=== PATIENT | female | born 2000 | race Caucasian/White ===

== ENCOUNTER 2024-07-23 12:51 | Emergency (ER) | payer OTHER, SELFPAY ==
[2024-07-23 12:56] VITALS: BP 104/72; PULSE 108; RESP 20; O2SAT 99; BMI 18.9
[2024-07-23] MEDS: ONDANSETRON 2 MG/ML inj 4 MG IVP (13:35)
[2024-07-23] MEDS: LACTATED RINGERS 1000 ML 1,000 ML IV ×2 (13:45→14:30)
[2024-07-23 13:50] LABS: Basophils Percent Auto 0.1 % (0.0-3.0); Hematocrit 36.8 % (33.0-51.0); Hemoglobin* 12.6 gm/dL (12.0-16.0); Immature Granulocytes Pct Auto 0.3 %; Lymphocytes Percent Auto 3.7 % (20-44); Mean Corpuscular HGB Conc 34 gm/dL (32-36); Mean Corpuscular Hemoglobin 30 pg (26-34); Mean Corpuscular Volume 88 fL (80-100); Monocytes Percent Auto 2.6 % (0.0-11.0); Neutrophils Percent Auto 93.3 % (42.0-72.0); Platelet Count* 268 K/uL (140-440); Red Blood Count 4.17 m/uL (4.00-5.20); White Blood Count* 17.16 K/uL (4.50-11.00)
[2024-07-23 13:57] LABS: Slide Review Reflex No
--- NOTE | 2024-07-23 13:58 | ED_ITS ---
HPI - Nausea/Vomiting/Diarrhea General Date Seen: 07/23/24 Chief complaint: Nausea/Vomiting Stated complaint: dehydrated, vomiting Time Seen by Provider: 07/23/24 13:01 Source: patient Mode of arrival: ambulatory Limitations: no limitations History of Present Illness HPI Narrative: Patient is a 24-year-old female presenting to emergency department for nausea, vomiting, diarrhea. She states symptoms started 05:30 this morning. She [place]. Is not states she got intoxicated but did have a good to buzz going. States the symptoms happened whenever she drinks too much alcohol. Has tried Zofran and Phenergan at home but was unable to keep the medication down and quickly vomited back up. Has not been able to keep anything down this morning. States she has lost track of only time she has vomited and has had diarrhea all morning. Is still very nauseated at this time. States he feels lightheaded. Denies abdominal pain, chest pain, shortness of breath, fevers, chills, weakness, numbness. Is feeling fatigued. No other concerns noted at this time. Related Data Previous Rx's ?Medication ?Instructions ?Recorded ondansetron 4 mg disintegrating 4 mg PO Q6H #20 tabs 07/23/24 tablet Allergies Allergy/AdvReac Type Severity Reaction Status Date / Time No Known Drug Allergies Allergy Verified 07/23/24 13:00 Review of Systems Status of ROS: Reports: 10 or more systems reviewed and unremarkable except as noted in History and below Exam Narrative: Exam Narrative: Const: Well-nourished, Well-developed, in mild distress Eyes: PERRL, no conjunctival injection, and symmetrical lids HENT: Atraumatic external nose and ears. Moist mucous membranes. Neck: Symmetric, trachea midline, No thyromegaly. CVS: RRR, No murmurs or gallops. Peripheral pulses 2+ and equal in all extremities RESP: Unlabored respiratory effort. Clear to auscultation bilaterally. GI: Nontender/Nondistended, No rebound or guarding. MSK:Extremities w/o deformity, Normal Active ROM Skin: Warm, Dry. No rashes or lesions. Neuro: Normal Muscle tone, No focal neurological deficits. Psych: Awake, Alert, & Oriented x3. Appropriate mood and affect. Const: Vital Signs, click to edit/add: Vital Signs - 24 hr 07/23/24 12:56 07/23/24 14:07 07/23/24 14:54 Temperature 97.8 F Pulse Rate [Pulse Oximeter] 108 H 69 Respiratory Rate 20 Blood Pressure [Ri ght Upper Arm] 104/72 Pulse Oximetry 99 99 Oxygen Delivery Me thod Room Air Room Air 07/23/24 15:30 07/23/24 15:30 Temperature Pulse Rate [Pulse Oximeter] Respiratory Rate 22 Blood Pressure [Ri ght Upper Arm] 102/68 Pulse Oximetry Oxygen Delivery Me thod Course Vital Signs Vital signs: Initial Vital Signs Pulse Rate 108 H 07/23/24 12:56 Respiratory Rate 20 07/23/24 12:56 Blood Pressure 104/72 07/23/24 12:56 Blood Pressure Mean 82 07/23/24 12:56 Pulse Oximetry 99 07/23/24 12:56 Oxygen Delivery Method Room Air 07/23/24 12:56 Vital Signs Pulse Rate 108 H 07/23/24 12:56 Respiratory Rate 20 07/23/24 12:56 Blood Pressure 104/72 07/23/24 12:56 Pulse Oximetry 99 07/23/24 12:56 Oxygen Delivery Method Room Air 07/23/24 12:56 Temperature 97.8 F 07/23/24 14:07 Pulse Rate 69 07/23/24 14:54 Respiratory Rate 22 07/23/24 15:30 Blood Pressure 102/68 07/23/24 15:30 Pulse Oximetry 99 07/23/24 14:54 Oxygen Delivery Method Room Air 07/23/24 14:54 Medications Administered Medications: Discontinued Medications Generic Name Dose Route Start Last Admin Trade Name Freq PRN Reason Stop Dose Admin Diphenhydramine HCl 25 mg 07/23/24 14:12 07/23/24 14:14 Diphenhydramine 50 Mg/Ml Inj IVP 07/23/24 14:13 25 mg ONCE ONE Administration Droperidol 2.5 mg 07/23/24 15:16 07/23/24 15:28 Droperidol 2.5 Mg/Ml Inj IV 07/23/24 15:17 2.5 mg ONCE ONE Administration Lactated Ringer's 1,000 mls @ 1,000 mls/hr 07/23/24 13:24 07/23/24 14:39 Lactated Ringers 1000 Ml IV 07/23/24 14:23 Infused .Q1H ONE Infusion Lactated Ringer's 1,000 mls @ 1,000 mls/hr 07/23/24 14:24 07/23/24 15:30 Lactated Ringers 1000 Ml IV 07/23/24 15:23 Infused .Q1H ONE Infusion Metoclopramide HCl 10 mg 07/23/24 14:12 07/23/24 14:15 Metoclopramide Hcl 5 Mg/Ml Inj IVP 07/23/24 14:13 10 mg ONCE ONE Administration Ondansetron HCl 4 mg 07/23/24 13:24 07/23/24 13:35 Ondansetron 2 Mg/Ml Inj IVP 07/23/24 13:25 4 mg ONCE ONE Administration MDM - Nausea/Vomiting/Diarrhea MDM Narrative Medical decision making narrative: Patient is 24-year-old female presenting for nausea, vomiting, diarrhea. Differential includes at this time is a gastritis, pancreatitis pancreatitis, viral infection. Seems unlikely to be related to gallbladder disease we will do LFTs to look for abnormalities. Also seems unlikely to be appendicitis considering she is having no abdominal pain. SBO seems unlikely with no previous abdominal surgeries. At this time and not believe abdominal imaging is necessary but will order CBC, lipase, magnesium, urinalysis, CMP, urine test. She declined the COVID swab. Give her 1 L of lactated Ringer's and Zofran for nausea. Lab work returned with a white count of 17.16. No clear signs of infection of this times likely be stress reaction from a for vomiting. CMP shows no concerning abnormalities. Lipase within normal limits. Urinalysis shows no clear signs of UTI. She is still nauseated after the Zofran and Reglan was tried. Also gave her a 2 L of fluids. Her heart rate has improved significantly and she is not actively driving anymore but is still feeling nauseated. And will try droperidol and do an EKG prior. EKG was done showing no signs have Q T prolongation. Droperidol was given with some improvement in her symptoms. At this point there is not much further we can do for her nausea. Her vitals otherwise look well and do not believe imaging will be beneficial. She does feel like she can be discharged I will prescribe her some orally disintegrating Zofran. She is agreeable to this plan. Lab Data Labs: Lab Results 07/23/24 07/23/24 Range/Units 13:40 14:30 WBC 17.16 H (4.50-11.00) K/uL RBC 4.17 (4.00-5.20) m/uL Hgb 12.6 (12.0-16.0) gm/dL Hct 36.8 (33.0-51.0) % MCV 88 (80-100) fL MCH 30 (26-34) pg MCHC 34 (32-36) gm/dL RDW Coeff of Leonie 12.0 (11.5-15.5) % Plt Count 268 (140-440) K/uL Neut % (Auto) 93.3 H (42.0-72.0) % Lymph % (Auto) 3.7 L (20-44) % Bradford % (Auto) 2.6 (0.0-11.0) % Eos % (Auto) 0.0 (0.0-7.0) % Baso % (Auto) 0.1 (0.0-3.0) % Neut # (Auto) 16.00 H (1.7-7.0) K/uL Lymph # (Auto) 0.60 L (0.90-2.90) K/uL Bradford # (Auto) 0.40 (0.00-0.90) K/UL Eos # (Auto) 0.00 (0.00-0.50) K/uL Baso # (Auto) 0.00 (0.00-0.30) K/uL Abs Immat Gran (auto) 0.10 (0.00-0.30) K/uL Imm/Tot Granulo (auto) 0.3 % Sodium 135 (135-149) mmol/L Potassium 3.5 L (3.6-5.1) mmol/L Chloride 106 (96-114) mmol/L Carbon Dioxide 17 L (20-32) mmol/L Anion Gap 12 (7-15) mEq/L BUN 13 (5-24) mg/dL Creatinine 0.5 (0.5-1.5) mg/dL Estimated Creat Clear 134.30 Estimated GFR 133 ml/min Glucose 142 H (60-115) mg/dL Calcium 9.6 (8.4-10.6) mg/dL Magnesium 1.6 (1.5-2.6) mg/dL Total Bilirubin 0.7 (0.1-1.5) mg/dL AST 25 (12-35) U/L ALT 18 (4-35) U/L Alkaline Phosphatase 61 (40-150) U/L Total Protein 7.7 (6.0-8.3) g/dL Albumin 4.9 (3.3-5.0) g/dL Lipase 48 (23-300) U/L Urine Color Yellow (Yellow) Urine Appearance Clear (Clear) Urine pH 7.5 (5.0-8.5) Ur Specific [place] 1.020 (1.000-1.030) Urine Protein 1+ A (Negative) Urine Glucose (UA) Negative (Negative) Urine Ketones 4+ A (Negative) Urine Blood Trace-intact A (Negative) Urine Nitrite Negative (Negative) Urine Bilirubin Negative (Negative) Urine Urobilinogen 0.2 (0.2-1.0) Ur Leukocyte Esterase Negative (Negative) Urine RBC 2-5 A (0-2) Urine WBC 0-2 (0-5) Ur Squamous Epith Cells Few (None-Few) Urine Bacteria Few A (None) Urine HCG, Qual Negative (Negative) ECG Data Attestation: I personally reviewed and interpreted this ECG as follows: Prior ECG tracings: not available for review Interpretation: Normal sinus rhythm rate of 68 beats per minute, short NE interval, normal axis, no ST T-wave abnormalities. Discharge Plan Discharge Clinical Impression: Nausea & vomiting Qualifiers: Vomiting type: unspecified Qualified Code(s): R11.2 - Nausea with vomiting, unspecified Patient Disposition: Home, Self-Care Condition: Improved Instructions: Acute Nausea and Vomiting (DC) Additional Instructions: Try using the oral disintegrating tablets of the Zofran. Return to emergency department for new or worsening symptoms. Prescriptions: New ondansetron 4 mg tablet,disintegrating 4 mg PO Q6H Qty: 20 0RF Follow Up/Referrals: Gunner Cox MBBS [Primary Care Provider] - Stand Alone Forms: [employer] Info Instructions
[2024-07-23 14:07] VITALS: TEMP 36.6
[2024-07-23 14:08] LABS: Albumin* 4.9 g/dL (3.3-5.0)
[2024-07-23 14:09] LABS: Chloride* 106 mmol/L (96-114); Potassium* 3.5 mmol/L (3.6-5.1); Sodium* 135 mmol/L (135-149)
[2024-07-23 14:11] LABS: Anion Gap 12 mEq/L (7-15); Aspartate Amino Transferase* 25 U/L (12-35); Bilirubin Total* 0.7 mg/dL (0.1-1.5); Carbon Dioxide* 17 mmol/L (20-32); Creatinine* 0.5 mg/dL (0.5-1.5); Estimated Glomerular Filt Rate 133 ml/min; Total Protein* 7.7 g/dL (6.0-8.3)
[2024-07-23 14:12] LABS: Alanine Aminotransferase* 18 U/L (4-35); Alkaline Phosphatase* 61 U/L (40-150); Blood Urea Nitrogen* 13 mg/dL (5-24); Calcium* 9.6 mg/dL (8.4-10.6); Glucose* 142 mg/dL (60-115); Lipase* 48 U/L (23-300)
[2024-07-23 14:13] LABS: Magnesium* 1.6 mg/dL (1.5-2.6)
[2024-07-23] MEDS: diphenhydrAMINE 50 MG/ML inj 25 MG IVP (14:14)
[2024-07-23] MEDS: METOCLOPRAMIDE HCL 5 MG/ML INJ 10 MG IVP (14:15)
[2024-07-23 14:54] VITALS: PULSE 69; O2SAT 99
[2024-07-23 15:02] LABS: Appearance Urine Clear (Clear); Bilirubin Urine Negative (Negative); Blood Urine Trace-intact (Negative); Color Urine Yellow (Yellow); Glucose Urine Negative (Negative); Ketones Urine 4+ (Negative); Leukocyte Esterase Urine Negative (Negative); Nitrite Urine Negative (Negative); Protein Urine 1+ (Negative); Urobilinogen Urine 0.2 (0.2-1.0); pH Urine 7.5 (5.0-8.5)
[2024-07-23 15:03] LABS: Ur HCG Qualitative* Negative (Negative)
[2024-07-23] MEDS: droperidoL 2.5 MG/ML inj IV (15:28)
[2024-07-23 15:30] VITALS: BP 102/68; RESP 22
[2024-07-23 15:32] LABS: Bacteria Urine Few; Squamous Epithelial Cell Urine Few (None-Few); WBC Urine 0-2 (0-5)
== END 2024-07-23 15:55 | disposition home or self-care (01) ==
PROVIDERS: Emergency Provider Student in an Organized Health Care Education/Training Program; PCP Internal Medicine
DX: R11.2 Nausea with vomiting, unspecified (principal)
CPT/HCPCS: 36415; 80053; 81001; 81025; 83690; 83735; 85025; 87086; 87631; 93005; 96374; 96375; 99283; 99284; J1200; J1790; J2405; J2765; J7120

== ENCOUNTER 2025-05-25 06:19 | Emergency (ER) | payer OTHER, SELFPAY ==
--- OUTSIDE RECORDS SUMMARY | 2025-05-25 06:21 | XMS_ITS | Encounter Summary ---
Author Organization [facility] Address [address], [place] [address] Care Team Providers Care Manager Market Name Role Phone Unavailable Primary Care Provider Unavailabl e Encounter Details Date Type Department Care Team (Late st Contact Info) Description 06/04/2019 Correspondence None No Primary/Referring, Phy REFERRAL AND AUTHORIZATION Social History Tobacco Use Types Packs/Day Years Used Date Smoking Tobacco: Never Smokeless Tobacco: Never Alcohol Use Standard Drinks/Week Comments Yes 0 (1 standard drink = 0.6 oz pur e alcohol) social Comments No Sex and Gender Information Value Date Recorded Sex Assigned at Not on file Legal Sex Female 4:04 PM CDT Gender Identity Not on file Sexual Orientation Not on file documented as of this encounter Plan of Treatment Not on file documented as of this encounter Visit Diagnoses Not on filedocumented in this encounter
--- OUTSIDE RECORDS SUMMARY | 2025-05-25 06:21 | XMS_ITS | Encounter Summary ---
Author Organization [facility] Address [address] [place] [address] Care Team Providers Care Licensed Dispensing Optician Name Role Phone Clinic - [facility] Primary Care P juani Jessica Maier CNM Unavailable [phone] No Ref-Primary, Physician Primary Care Provider Luci Sanches [facility] Unavailable [phone] Joana Roland RN Unavailable Unavailable Jessica Ferrara MD Primary Care Provider Jessica Ferrara MD Unavailable [phone] Chaparro Vargas MD Unavailable Chaparro Vargas MD Unavailable Alissa Payan [facility] Primary Care Provid er Unavailable Isha Cox MD Primary Care Provider Robbie Shrestha Unavailable Unavailable Isha Cox MD Unavailable Genaro Jimenez Unavailable Unavailable Shahnaz Barber Unavailable Unavailable Encounter Details Date Type Department Care Team (Late st Contact Info) Description 10/08/2020 [place] [facility] Mental Health & Addiction [facility] [address] [place] [id number] Luci Sanches, [address] [place] [address] Social History Tobacco Use Types Packs/Day Years Used Date Smoking Tobacco: Never Smokeless Tobacco: Never Alcohol Use Standard Drinks/Week Comments No 0 (1 standard drink = 0.6 oz pur e alcohol) Social Connection and Isolat ion Panel [NHANES] Answer Date Recorded In a typical week, how many times do you talk on the phone with family, friends, or neighbors? More than three times a week 07/23/2020 Frequency of Social Gatherin gs with Friends and Family Not on file 07/23/2020 Attends Nondenominational Services Not on file 07/23 Active Member of Clubs or Organizations Not on f ile 07/23/2020 Attends Club or Organization Meetings Not on riley e 07/23/2020 Marital Status Not on file 07/23/2020 Overall Financial Resource Strain (CARDIA) Answe r Date Recorded How hard is it for you to pa y for the very basics like food, housing, medical care, and heating? Not hard at all 07/23/2020 PHQ-2 Answer Date Recorded PHQ-2 Score 2 09/14/2020 [facility] - Occupational Stress Questionnaire Answer Date Recorded Do you feel stress - tense, restless, nervous, or anxious, or unable to sleep at night because your mind is troubled all the time - these days? Not at all 07/23/2020 Hunger Vital Sign Answer Date Recorded Within the past 12 months, y ou worried that your food would run out before you got the money to buy more. Never true 07/23/20 20 Within the past 12 months, t he food you bought just didn't last and you didn't have money to get more. Never true 07/23/2020 PRAPARE - Transportation Answer Date Re corded In the past 12 months, has l ack of transportation kept you from medical appointments or from getting medications? No 01/2020 In the past 12 months, has l ack of transportation kept you from meetings, work, or from getting things needed for daily living? No 07/23/2020 Comments No Sex and Gender Information Value Date Recorded Sex Assigned at Not on file Legal Sex Female 3:35 AM HOME HEALTH CARE PROVIDER Gender Identity Not on file Sexual Orientation Not on file documented as of this encounter Plan of Treatment Not on file documented as of this encounter Visit Diagnoses Not on filedocumented in this encounter Additional Health Concerns Assessment Noted Time PHQ-9 Depression Total Score: 5 09/28/20 20 12:09 PM HOME HEALTH CARE PROVIDER documented as of this encounter Care Teams Licensed Dispensing Optician Relationship Specialty Start Date End Date Clinic - [place] [place] [address] PCP - General 09/24/19 11/15/20 No Ref-Primary, Physician PCP - General 11/16/20 02/11/21 Jessica Ferrara MD PCP - General Internal Medicine 02/12/21 08/16/21 Edilberto-Alissa Garcia, COOL ROOFING INSTALLER [address] [place] [address] PCP - General Data Analysis Manager - Clinical 08/17/21 08/26/21 [place] [address] [place] [address] PCP - General Family Medicine 08/27/21 Jessica Maier CNM [address] [place] [address] [place] [address] Assigned OBGYN Provider 09/11/20 01/15/22 Luci Sanches, COOL ROOFING INSTALLER [address] [place] [address] [address] [place] [address] Data Analysis Manager Data Analysis Manager - Clinical 09/15/20 Joana Roland, PITO Other (see comments) Primary Care - CC 12/31/20 04/29/21 Jessica Ferrara MD [address] [place] [address] Assigned PCP 01/21/21 09/04/21 Chaparro Vargas MD [address] [place] [address] MD Gastroenterology 03/22/21 Chaparro Vargas MD [address] [place] [address] Assigned Gastroenterology Provider 05/16/21 11/11/22 Robbie Shrestha Personal Advocate & Liaison (PAL) 08/27/21 02/06/22 [place] [address] [place] [address] Assigned PCP 09/05/21 Genaro Jimenez Personal Advocate & Liaison (PAL) 02/07/22 01/29/23 Shahnaz Barber Personal Advocate & Liaison (PAL) Family Medicine 01/30/23 documented as of this encounter
--- OUTSIDE RECORDS SUMMARY | 2025-05-25 06:21 | XMS_ITS | Encounter Summary ---
Author Organization [facility] Address [address] [place] [address] Care Team Providers Care Carrier Operator Name Role Phone Jessica Maier CHARU Unavailable No Ref-Primary, Physician Primary Care Provider Luci Sanches [facility] Unavailable Joana Roland RN Unavailable Unavailable Jessica Ferrara MD Primary Care Provider Jessica Ferrara MD Unavailable Chaparro Vargas MD Unavailable Chaparro Vargas MD Unavailable Alissa Payan [facility] Primary Care Provid er Unavailable Isha Cox MD Primary Care Provider Robbie Shrestha Unavailable Unavailable Isha Cox MD Unavailable Genaro Jimenez Unavailable Unavailable Shahnaz Barber Unavailable Unavailable Encounter Details Date Type Department Care Team (Late st Contact Info) Description 11/17/2020 [facility] & [facility] [address] [place] [address] Luci Sanches, FLOORING MACHINE OPERATOR [address] [facility] [address] [address] [facility] [place] [place] [id number] Social History Tobacco Use Types Packs/Day Years [...] and Family Not on file 07/23/2020 Attends Hoahaoism Services Not on file 07/23 Active Member [...] Answer Date Recorded PHQ-2 Score 2 09/14/2020 [facility] Occupat ional Health - Occupational Stress Questionnaire [...] on file Legal Sex Female 3:35 AM CARGO BRACER Gender Identity Not on file Sexual Orientation Not on file COVID-19 Exposure Response Date Recorded In the last month, have you been in contact with someone who was confirmed or suspected to have Coronavirus / COVID-19? No / Unsure 11/16/2020 10:15 AM CARGO BRACER documented as of this encounter Plan of Treatment Not on file documented as of this encounter Visit Diagnoses Not on filedocumented in this encounter Additional Health Concerns Assessment Noted Time PHQ-9 Depression Total Score: 4 11/02/20 20 1:10 PM CARGO BRACER documented as of this encounter Care Teams Carrier Operator Relationship Specialty Start Date End Date No Ref-Primary, Physician PCP - General 11/16/20 02/11/21 Jessica Ferrara MD PCP - General Internal Medicine 02/12/21 08/16/21 Edilberto-Alissa Garcia, [facility] [address] [place] [address] PCP - General Parimutuel Ticket Seller - Clinical 08/17/21 08/26/21 [place] [address] [place] [address] PCP - General Family Medicine 08/27/21 Jessica Maier CNM [address] [address] Assigned OBGYN Provider 09/11/20 01/15/22 Luci Sanches, [facility] [address] [place] [address] [address] [place] [address] Parimutuel Ticket Seller Parimutuel Ticket Seller - Clinical 09/15/20 Joana Roland, PITO Other (see comments) Primary Care - CC 12/31/20 04/29/21 Jessica Ferrara MD [facility] [address] [place] [address] Assigned PCP 01/21/21 09/04/21 Chaparro Vargas MD [address] [place] [address] Gastroenterology 03/22/21 Chaparro Vargas MD [address] [place] [address] Assigned Gastroenterology Provider 05/16/21 11/11/22 Robbie Shrestha Personal Advocate & Liaison (PAL) 08/27/21 02/06/22 [place] [address] [place] [address] Assigned PCP 09/05/21 Genaro Jimenez Personal Advocate & Liaison (PAL) 02/07/22 01/29/23 Shahnaz Barber Personal Advocate & Liaison (PAL) Family Medicine 01/30/23 documented as of this encounter
--- OUTSIDE RECORDS SUMMARY | 2025-05-25 06:21 | XMS_ITS | Encounter Summary ---
Author Organization [facility] Address [address] [place] [address] Care Team Providers Care Advertising Production Manager Name Role Phone Clinic - [facility] Primary Care P juani Jessica Maier CNM Unavailable [phone] No Ref-Primary, Physician Primary Care Provider Luci Sanches [facility] Unavailable Joana Roland RN Unavailable Unavailable Jessica Ferrara MD Primary Care Provider Jessica Ferrara MD Unavailable [phone] Chaparro Vargas MD Unavailable Chaparro Vargas MD Unavailable Alissa Payan [facility] Primary Care Provid er Unavailable Isha Cox MD Primary Care Provider Robbie Shrestha Unavailable Unavailable Isha Cox MD Unavailable Genaro Jimenez Unavailable Unavailable Shahnaz Barber Unavailable Unavailable Encounter Details Date Type Department Care Team (Late st Contact Info) Description 10/30/2020 [place] [facility] Mental Health & Addiction [facility] [address] [place] [address] Luci Sanches, ENTERPRISE APPLICATION ANALYST [address] [facility] [address] [facility] [place] [address] Social History Tobacco Use Types Packs/Day Years [...] and Family Not on file 07/23/2020 Attends Congregational Services Not on file 07/23 Active Member [...] Answer Date Recorded PHQ-2 Score 2 09/14/2020 [facility]at ional [facility] - [...] on file Legal Sex Female 3:35 AM OPERATIONS MANAGER/COORDINATOR Gender Identity Not on file Sexual Orientation Not on file documented as of this encounter Plan of Treatment Not on file documented as of this encounter Visit Diagnoses Not on filedocumented in this encounter Additional Health Concerns Assessment Noted Time PHQ-9 Depression Total Score: 5 09/28/20 20 12:09 PM OPERATIONS MANAGER/COORDINATOR documented as of this encounter Care Teams Advertising Production Manager Relationship Specialty Start Date End Date Clinic - [place] [address] [place] [address] PCP - General 09/24/19 11/15/20 No Ref-Primary, Physician PCP - General 11/16/20 02/11/21 Jessica Ferrara MD PCP - General Internal Medicine 02/12/21 08/16/21 Edilberto-Alissa Garcia [facility] [address] [place] [address] PCP - General Management Analyst - Clinical 08/17/21 08/26/21 [place] [address] [place] [address] PCP - General Family Medicine 08/27/21 Jessica Maier CNM [address] [place] [address] [place] [address] Assigned OBGYN Provider 09/11/20 01/15/22 Luci Sanches, ENTERPRISE APPLICATION ANALYST [address] [place] [address] [address] [place] [address] Management Analyst Management Analyst - Clinical 09/15/20 Joana Roland, PITO Other (see comments) Primary Care - CC 12/31/20 04/29/21 Jessica Ferrara MD [place] [id number] [place] [address] Assigned PCP 01/21/21 09/04/21 Chaparro Vargas MD [address] [place] [address] MD Gastroenterology 03/22/21 Chaparro Vargas MD [address] [place] [address] Assigned Gastroenterology Provider 05/16/21 11/11/22 Robbie Shrestha Personal Advocate & Liaison (PAL) 08/27/21 02/06/22 [place] [address] [place] [address] Assigned PCP 09/05/21 Genaro Jimenez Personal Advocate & Liaison (PAL) 02/07/22 01/29/23 Shahnaz Barber Personal Advocate & Liaison (PAL) Family Medicine 01/30/23 documented as of this encounter
--- OUTSIDE RECORDS SUMMARY | 2025-05-25 06:21 | XMS_ITS | Encounter Summary ---
Author Organization [facility] Address [address] [place] [address] Care Team Providers Care Medical Laboratory Technical Officer Name Role Phone Clinic - [facility] Primary Care P juani Jessica Maier CNM Unavailable [phone] No Ref-Primary, Physician Primary Care Provider Luci Sanches [facility] Unavailable [phone] Joana Roland RN Unavailable Unavailable Jessica Ferrara MD Primary Care Provider Jessica Ferrara MD Unavailable [phone] Chaparro Vargas MD Unavailable Chaparro Vargas MD Unavailable Alissa Payan [facility] Primary Care Provid er Unavailable Isha Cox MD Primary Care Provider Robbie Shrestha Unavailable Unavailable Isha Cox MD Unavailable Genaro Jimenez Unavailable Unavailable Shahnaz Barber Unavailable Unavailable Encounter Details Date Type Department Care Team (Late st Contact Info) Description 09/25/2020 [place] [facility] Health & [facility] [address] [place] [address] Luci Sanches, [address] [place] [address] Social History Tobacco Use Types Packs/Day Years [...] and Family Not on file 07/23/2020 Attends Voodoo Services Not on file 07/23 Active Member [...] Answer Date Recorded PHQ-2 Score 2 09/14/2020 [facility] - Occupational Stress [...] on file Legal Sex Female 3:35 AM SOFTWARE SUPPORT TECHNICIAN Gender Identity Not on file Sexual Orientation Not on file COVID-19 Exposure Response Date Recorded In the last month, have you been in contact with someone who was confirmed or suspected to have Coronavirus / COVID-19? No / Unsure 08/31/2020 5:15 PM CDT documented as of this encounter Plan of Treatment Not on file documented as of this encounter Visit Diagnoses Not on filedocumented in this encounter Additional Health Concerns Assessment Noted Time PHQ-9 Depression Total Score: 4 09/15/20 20 7:03 AM CDT documented as of this encounter Care Teams Medical Laboratory Technical Officer Relationship Specialty Start Date End Date Clinic - [address] [place] [address] PCP - General 09/24/19 11/15/20 No Ref-Primary, Physician PCP - General 11/16/20 02/11/21 Jessica Ferrara MD PCP - General Internal Medicine 02/12/21 08/16/21 Alissa Payan, [address] [place] [address] PCP - General Crab Picker - Clinical 08/17/21 08/26/21 [place] [address] [place] [address] PCP - General Family Medicine 08/27/21 Jessica Maier CNM [address] [place] [address] Assigned OBGYN Provider 09/11/20 01/15/22 Luci Sanches, [address] [facility] [place] [address] Crab Picker Crab Picker - Clinical 09/15/20 Joana Roland, RN Other (see comments) Primary Care - CC 12/31/20 04/29/21 Jessica Ferrara MD [facility] [address] [place] [address] Assigned PCP 01/21/21 09/04/21 Chaparro Vargas MD [address] [place] [address] Gastroenterology 03/22/21 Chaparro Vargas MD [address] [place] [address] Assigned Gastroenterology Provider 05/16/21 11/11/22 Robbie Shrestha Personal Advocate & Liaison (PAL) 08/27/21 02/06/22 [place] [address] [place] [address] Assigned PCP 09/05/21 Genaro Jimenez Personal Advocate & Liaison (PAL) 02/07/22 01/29/23 Shahnaz Barber Personal Advocate & Liaison (PAL) Family Medicine 01/30/23 documented as of this encounter
--- OUTSIDE RECORDS SUMMARY | 2025-05-25 06:21 | XMS_ITS | Encounter Summary ---
Author Organization [facility] Address [address] [place] [address] Care Team Providers Care Library Page Name Role Phone JeroramyLuci Unavailable [phone] Chaparro Vargas MD Unavailable Isha Cox MD Primary Care Provider [phone] Isha Cox MD Unavailable Shahnaz Barber Unavailable Unavailable Encounter Details Date Type Department Care Team (Late st Contact Info) Description 06/29/2023 [facility] [address] [address] Noni Asif, DIRECTOR OF HEALTH CARE MARKETING Social History Tobacco Use Types Packs/Day Years Used Date Smoking Tobacco: Former Cigarettes Other Smokeless Tobacco: Never Comments:Quit E-cigarette Alcohol Use Standard Drinks/Week Comments No 0 (1 standard drink = 0.6 oz pur e alcohol) very rare Social Connection and Isolat ion Panel [NHANES] Answer Date Recorded In a typical week, how many times do you talk on the phone with family, friends, or neighbors? More than three times a week 01/27/2023 How often do you get togethe r with friends or relatives? More than three times a week 01/27/2023 How often do you attend chur ch or orthodoxy services? Patient declined 01/27/2023 Do you belong to any clubs o r organizations such as synagogue groups, unions, fraternal or athletic groups, or school groups? Patient declined 01/27/2023 Attends Club or Organization Meetings Not on riley e 01/27/2023 Are you , , di vorced, , never , or living with a partner? Living with partner 01/27/2023 AUDIT-C Answer Date Recorded Q1: How often do you have a drink containing alc ohol? 2-4 times a month 01/27/2023 Q2: How many drinks containi ng alcohol do you have on a typical day when you are drinking? 1 or 2 01/27/2023 Q3: How often do you have si x or more drinks on one occasion? Never 01/27/2023 Overall Financial Resource Strain (CARDIA) Answe r Date Recorded How hard is it for you to pa y for the very basics like food, housing, medical care, and heating? Patient declined 01/27/2023 PHQ-2 Answer Date Recorded PHQ-2 Score 0 01/30/2023 [facility] - Occupational Stress Questionnaire Answer Date Recorded Do you feel stress - tense, restless, nervous, or anxious, or unable to sleep at night because your mind is troubled all the time - these days? Not at all 01/27/2023 Exercise Vital Sign Answer Date Recorde d On average, how many days pe r week do you engage in moderate to strenuous exercise (like a brisk walk)? 2 days 01/27/2023 On average, how many minutes do you engage in exercise at this level? 60 min 01/27/2023 Hunger Vital Sign Answer Date Recorded Within the past 12 months, y ou worried that your food would run out before you got the money to buy more. Patient declined Within the past 12 months, t he food you bought just didn't last and you didn't have money to get more. Patient declined 08/2023 PRAPARE - Transportation Answer Date Re corded In the past 12 months, has l ack of transportation kept you from medical appointments or from getting medications? Patient declined 01/27/2023 In the past 12 months, has l ack of transportation kept you from meetings, work, or from getting things needed for daily living? Patient declined 01/27/2023 Housing Stability Vital Sign Answer Neo e Recorded In the last 12 months, was t here a time when you were not able to pay the mortgage or rent on time? No 01/27/2023 In the last 12 months, how many places have you lived? 1 01/27/2023 In the last 12 months, was t here a time when you did not have a steady place to sleep or slept in a alf (including now)? No 01/27/2023 Comments No Sex and Gender Information Value Date Recorded Sex Assigned at Not on file Legal Sex Female 3:35 AM SKI PATROL Gender Identity Not on file Sexual Orientation Not on file documented as of this encounter Plan of Treatment Not on file documented as of this encounter Visit Diagnoses Not on filedocumented in this encounter Additional Health Concerns Assessment Noted Time PHQ-9 Depression Total Score: 0 01/31/20 23 5:11 PM CDT documented as of this encounter Care Teams Library Page Relationship Specialty [place] [address] [place] [address] PCP - General Family Medicine 08/27/21 Luci Sanches, [facility] [address] [place] [address] [place] [address] Crinkling Machine Operator Crinkling Machine Operator - Clinical 09/15/20 Chaparro Vargas MD [address] [place] [address] Gastroenterology 03/22/21 [place] [address] [place] [address] Assigned PCP 09/05/21 Shahnaz Barber Personal Advocate & Liaison (PAL) Family Medicine 01/30/23 documented as of this encounter
--- OUTSIDE RECORDS SUMMARY | 2025-05-25 06:21 | XMS_ITS | Encounter Summary ---
Author Organization [facility] Address [address], [place] [address] Care Team Providers Care Bottling Attendant Name Role Phone Unavailable Primary Care Provider Unavailabl e Encounter Details Date Type Department Care Team (Late st Contact Info) Description 06/04/2019 Correspondence [facility] [place], [place] [id number] [facility] MED PT AUTH TO VIEW EPIC CHART Social History Tobacco Use Types Packs/Day Years [...]
--- OUTSIDE RECORDS SUMMARY | 2025-05-25 06:21 | XMS_ITS | Encounter Summary ---
Author Organization [facility] Address [address] [place] [address] Care Team Providers Care Slice Cutting Machine Operator Helper Name Role Phone Bradford Suarez MD Primary Care Provider [phone] Karie Zurita PA-C Primary Care Provider [facility] Primary Care P rovider Jessica Maier CN Unavailable [phone] No Ref-Primary, Physician Primary Care Provider Luci Sanches [facility] Unavailable [phone] Joana Roland RN Unavailable Unavailable Jessica Ferrara MD Primary Care Provider Jessica Ferrara MD Unavailable [phone] Chaparro Vargas MD Unavailable Chaparro Vargas MD Unavailable EdilbertoAlissa Garcia [facility] Primary Care Provid er Unavailable Isha Cox MD Primary Care Provider Robbie Shrestha Unavailable Unavailable Isha Cox MD Unavailable Genaro Jimenez Unavailable Unavailable Shahnaz Barber Unavailable Unavailable Encounter Details Date Type Department Care Team (Late st Contact Info) Description 07/13/[address] [place] [address] Bradford Suarez MD [address] [facility] [address] [place] [address] CONSULT,OP REPORT (Primary Dx) Social History Tobacco Use Types Packs/Day Years Used Date Smoking Tobacco: Never Smokeless Tobacco: Never Comments:Quit Juuling (nicot ine) for 5 months now Alcohol Use Standard Drinks/Week Comments No 0 (1 standard drink = 0.6 oz pur e alcohol) very rare Comments No Sex and Gender Information Value Date Recorded Sex Assigned at Not on file 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 HISTORY: Zev David is a [id number]-whg female, who has had a 36- hour history of abdominal pain, which has localized to the right lower quadrant. She has had anorexia but no vom iting. She has had no fever or respiratory symptoms or urinary symptoms. We were asked to see her i n surgical consultation. MEDICATIONS: None. ALLERGIES: None. PHYSICAL EXAMINATION: Reveals a so mewhat lethargic female in moderate distress from abdominal pain. Temperature 99.7, pulse 132, respi rations 22, weight 18 kg. HEENT: Unremarkable. NECK: Supple without mass. CHEST: Clear to auscu ltation. HEART: Regular rhythm without murmur. ABDOMEN: Soft, but with guarding and significant t enderness in the right lower quadrant. Bowel sounds are diminished. No mass or organomegaly is appr eciated. GENITALIA: Normal female. NEURO: Extremities unremarkable. LABORATORY DATA: Hemoglobin 12.2 gm/dl, WBC 22,800. Electrolytes normal. Urinalysis unremarkable. IMAGING: An abdominal CT was obtained, which is consistent with acute appendicitis. IMPRESSION: Acute appendicitis. RECOMMENDA TIONS: I have recommended surgical appendectomy to the mother. I have explained the risks and benef its of the proposed procedure to her, and she seems to understand and has given consent. The operatio n will be undertaken as soon as an operating room and team are available. [id number]_ R DOMINIC MANUEL MD [place]: Document: [id number] [place], [place] Name: ZEV DAVID CONSULTATION Page 2 of 2 LCN: JEANNE DSC: [place], [place] Name: MR#: : Consult Date: ZEV DAVID -9 3 1998 07/13/2003 Doctor: Shantanu MANUEL MD CONSULTATION Page 1 of 2 00:00 Operative Report-[facility] Shantanu MANUEL () [Entered: Qc Analyst (HIM)] : 89 1st ASS'T: 2nd ASS'T: PRE-OPERATIVE DIAGNOSIS: Acute appendicitis. POST-OPERATIVE DIAGNOSIS: Acute a ppendicitis. OPERATION: Appendectomy. HISTORY: Zev David is a hqej-zdjm-syd female who prese nted with a 36-hour history of abdominal pain, which has localized to the right lower quadrant. Her physical examination was consistent with acute appendicitis, which was confirmed by CT scan. She was admitted for emergency surgery. FINDINGS: The appendix was located in the right lower quadrant and was acutely inflamed. There was no evidence of abscess, perforation, or gangrene. A small amount o f turbid fluid was present in the right lower quadrant and pelvis. No other significant abnormalitie s were noted. ANESTHESIA: General. PROCEDURE: With the patient supine on the operating table and under satisfactory general anesthesia, the abdomen was prepped and draped sterilely. A transverse ri ght lower quadrant incision was made, and a muscle-splitting technique was used to gain access to the abdominal cavity. The cecum and then the appendix were elevated into view with the above findings b eing noted. An appendectomy was performed by clamping and ligating the mesentery of the appendix. T he base of the appendix was doubly with chromic, and the specimen was amputated. The stump was cauterized but was not inverted. The cecum was returned to its normal right lower quadrant position. The right lower quadrant and pelvis were then thoroughly irrigated with normal saline solution. Ma rcaine was injected. A layered chromic closure was done with each layer being irrigated as we closed . Steri- Strips were applied to the skin. The estimated blood loss for the procedure was minimal. There were no complications. The patient tolerated the procedure and the anesthesia without difficul ty and was taken to the PACU in satisfactory and stable condition. [id number]_ R DOMINIC MANUEL MD MT: Document: [id number] [place], [place] Name: SANDRA DAVIDFAUSTO Laurent LCN: JEANNE [facility] Name: MR#: : Procedure Date: ZEV DAVID -93 2000 07/13/2003 Doctor : Shantanu MANUEL MD OPERATIVE REPORT Page 1 of 2 documented in this encounter Plan of Treatment Not on file documented as of this encounter Visit Diagnoses Diagnosis CONSULT,OP REPORT- Primary documented in this encounter Care Teams Slice Cutting Machine Operator Helper Relationship Specialty Start Date End Date Bradford Suarez MD [address] [facility] [address] [place] [address] PCP - General 02/28/03 06/02/18 Karie Zurita PA-C [facility] [address] [place] [address] PCP - General Physician Distribution Operations Supervisor 06/03/18 09/23/19 Clinic - [place] [address] [place] [address] PCP - General 09/24/19 11/15/20 No Ref-Primary, Physician PCP - General 11/16/20 02/11/21 Jessica Ferrara MD PCP - General Internal Medicine 02/12/21 08/16/21 Edilberto-Alissa Garcia, [facility] [address] [place] [address] PCP - General Claim Technician - Clinical 08/17/21 08/26/21 [place] [address] [place] [address] PCP - General Family Medicine 08/27/21 Jessica Maier CNM [address] [address] Assigned OBGYN Provider 09/11/20 01/15/22 Luci Sanches, [facility] [address] [place] [address] [address] [place] [address] Claim Technician Claim Technician - Clinical 09/15/20 Joana Roland, [facility] Other (see comments) Primary Care - CC 12/31/20 04/29/21 Jessica Ferrara MD [facility] [address] [place] [address] Assigned PCP 01/21/21 09/04/21 Chaparro Vargas MD [address] [place] [address] Gastroenterology 03/22/21 Chaparro Vargas MD [address] [place] [address] Assigned Gastroenterology Provider 05/16/21 11/11/22 Robbie Shrestha Personal Advocate & Liaison (PAL) 08/27/21 02/06/22 [place] [address] [place] [address] Assigned PCP 09/05/21 Genaro Jimeenz Personal Advocate & Liaison (PAL) 02/07/22 01/29/23 Shahnaz Barber Personal Advocate & Liaison (PAL) Family Medicine 01/30/23 documented as of this encounter
--- OUTSIDE RECORDS SUMMARY | 2025-05-25 06:21 | XMS_ITS | Encounter Summary ---
Author Organization [facility] Address [address] [place] [address] Care Team Providers Care Probation Manager Name Role Phone JeroramyLuci Unavailable [phone] Chaparro Vargas MD Unavailable Chaparro Vargas MD Unavailable Isha Cox MD Primary Care Provider [phone] Isha Cox MD Unavailable Genaro Jimenez Unavailable Unavailable Shahnaz Barber Unavailable Unavailable Encounter Details Date Type Department Care Team (Late st Contact Info) Description 02/11/2022 [facility] Medical Advice [facility] [id number] [place] [address] Genaro Jimenez Social History Tobacco Use Types Packs/Day Years [...] and Family Not on file 07/23/2020 Attends Zoroastrian Services Not on file 07/23 Active Member [...] all 07/23/2020 PHQ-2 Answer Date Recorded PHQ-2 Total Score (Adult) - Positive if 3 or more points; Administer PHQ-9 if positive 0 02/11/2022 [facility] Questionnaire Answer Date Recorded [...] on file 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 [place] [address] Customer Support Professional Customer Support Professional - Clinical 09/15/20 Chaparro Vargas MD [address] [place] [address] MD Gastroenterology 03/22/21 Chaparro Vargas MD [address] [place] [address] Assigned Gastroenterology Provider 05/16/21 11/11/22 [place] [address] [place] [address] Assigned PCP 09/05/21 Genaro Jimenez Personal Advocate & Liaison (PAL) 02/07/22 01/29/23 Shahnaz Barber Personal Advocate & Liaison (PAL) Family Medicine 01/30/23 documented as of this encounter
--- OUTSIDE RECORDS SUMMARY | 2025-05-25 06:21 | XMS_ITS | Encounter Summary ---
Author Organization [facility] Address [address] [place] [address] Care Team Providers Care Auto Body Customizer Name Role Phone TaylorleonidasramyLuci Unavailable Chaparro Vargas MD Unavailable Isha Cox MD Primary Care Provider Isha Cox MD Unavailable Shahnaz Barber Unavailable Unavailable Reason for Visit * Reason Onset Date Comments MyChart Communication 07/03/2024 Encounter Details Date Type Department Care Team (Latest Contact Info) Description 07/03/2024 MyC Medical Advice [facility] [id number] [place] [id number] [place] [address] [place] [address] MyChart Communication Social History Tobacco Use Types Packs/Day Years Used Date Smoking Tobacco: Never Smokeless Tobacco: Never Comments:Quit E-cigarette Alcohol Use Standard Drinks/Week Comments No 0 (1 standard drink = 0.6 oz pur e alcohol) very rare Social Connection and Isolation Panel [NHANES] A nswer Date Recorded In a typical week, how many times do you talk on the phone with family, friends, or neighbors? Twice a week 03/14/20 How often do you get togethe r with friends or relatives? Twice a week 03/14/2024 How often do you attend [facility] or pentecostal services? Never 03/14/2024 Do you belong to any clubs o r organizations such as gnosticism groups, unions, fraternal or athletic groups, or school groups? No 03/14/2024 How often do you attend meet ings of the clubs or organizations you belong to? Patient declined 03/14/2024 Are you , , di vorced, , never , or living with a partner? Living with partner 03/14/2024 AUDIT-C Answer Date Recorded Q1: How often do you have a drink containing alc ohol? Monthly or less 03/14/2024 Q2: How many drinks containi ng alcohol do you have on a typical day when you are drinking? 1 or 2 03/14/2024 Q3: How often do you have si x or more drinks on one occasion? Never 03/14/2024 PHQ-2 Answer Date Recorded PHQ-2 Score 0 03/14/2024 [facility] Occupat ional Health - Occupational Stress Questionnaire Answer Date Recorded Do you feel stress - tense, restless, nervous, or anxious, or unable to sleep at night because your mind is troubled all the time - these days? Not at all 03/14/2024 Exercise Vital Sign Answer Date Recorde d On average, how many days pe r week do you engage in moderate to strenuous exercise (like a brisk walk)? 3 days 03/14/2024 On average, how many minutes do you engage in exercise at this level? 60 min 03/14/2024 Adolescent Education Answer Date Record ed Getting School Help Needed Not on file 09/03 Food Insecurity Answer Date Recorded Within the past 12 months, d id you worry that your food would run out before you got money to buy more? No 03/14/2024 Within the past 12 months, d id the food you bought just not last and you didn t have money to get more? No 03/14/2024 Housing Stability Answer Date Recorded Do you have housing? (Housin g is defined as stable permanent housing and does not include staying outside in a car, in a tent, in an abandoned building, in an overnight intermediate, or couch-surfing.) Yes 03/14/2024 Are you worried about losing your housing? No 03/14/2024 Financial Resource Strain Answer Date R ecorded Within the past 12 months, h ave you or your family members you live with been unable to get utilities (heat, electricity) when it was really needed? No 03/14/2024 Transportation Needs Answer Date Record ed Within the past 12 months, h as lack of transportation kept you from medical appointments, getting your medicines, non-medical meetings or appointments, work, or from getting things that you need? No 03/14/2024 Interpersonal Safety Answer Date Record ed Do you feel physically and e motionally safe where you currently live? Yes 03/14/2024 Within the past 12 months, h ave you been hit, slapped, kicked or otherwise physically hurt by someone? No 03/14/2024 Within the past 12 months, h ave you been humiliated or emotionally abused in other ways by your partner or ex-partner? 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 See Nurse Triage Encounter 07/03/24. Belen Elaine R.N. * Telephone Encounter - Isha Cox MD - 07/03/2024 2:08 PM CDT Hi Surgeon probably would like a new ultrasound scan to find out if it is the cause of the pain . Please triage to find out the symptoms Happy to order scan . Previous scan in 2019 GALLBLADDER: The gallbladder is normal. No gallstones, wall thickening, or pericholecystic fluid. Negative sonographic Fine's sign. Thanks Isha Vargas. documented in this encounter Plan of Treatment Not on file documented as of this encounter Visit Diagnoses Not on filedocumented in this encounter Additional Health Concerns Assessment Noted Time PHQ-9 Depression Total Score: 0 03/14/20 24 3:00 PM CDT documented as of this encounter Care Teams Auto Body Customizer Relationship Specialty [place] [address] [place] [address] PCP - General Family Medicine 08/27/21 Luci Sanches, [facility] [address] [place] [address] [place] [address] Loader Magazine Grinder Loader Magazine Grinder - Clinical 09/15/20 Chaparro Vargas MD [address] [place] [address] Gastroenterology 03/22/21 [place] [address] [place] [address] Assigned PCP 09/05/21 Shahnaz Barber Personal Advocate & Liaison (PAL) Family Medicine 01/30/23 documented as of this encounter
--- OUTSIDE RECORDS SUMMARY | 2025-05-25 06:21 | XMS_ITS | Encounter Summary ---
Author Organization [facility] Address [address] [place] [address] Care Team Providers Care Guest Service Manager Name Role Phone Jessica Maier CN Unavailable [phone] No Ref-Primary, Physician Primary Care Provider Luci Sanches [facility] Unavailable [phone] Jaona Roland RN Unavailable Unavailable Jessica Ferrara MD Primary Care Provider Jessica Ferrara MD Unavailable [phone] Chaparro Vargas MD Unavailable Chaparro Vargas MD Unavailable Alissa Payan [facility] Primary Care Provid er Unavailable Isha Cox MD Primary Care Provider Robbie Shrestha Unavailable Unavailable Isha Cox MD Unavailable Genaro Jimenez Unavailable Unavailable Shahnaz Barber Unavailable Unavailable Encounter Details Date Type Department Care Team (Late st Contact Info) Description 12/31/2020 [facility] Care Coordination [facility] [address] [place] [phone] Joana Roland, RN Social History Tobacco Use Types Packs/Day Years [...] and Family Not on file 07/23/2020 Attends Islam Services Not on file 07/23 Active Member [...] 07/23/2020 PHQ-2 Answer Date Recorded PHQ-2 Score 1 12/14/2020 [facility] Occupat ional Health - Occupational Stress [...] on file Legal Sex Female 3:35 AM TMD TEACHER ASSISTANT Gender Identity Not on file Sexual Orientation Not on file documented as of this encounter Plan of Treatment Not on file documented as of this encounter Visit Diagnoses Not on filedocumented in this encounter Additional Health Concerns Assessment Noted Time PHQ-9 Depression Total Score: 2 12/14/19 21 12:10 PM TMD TEACHER ASSISTANT documented as of this encounter Care Teams Guest Service Manager Relationship Specialty Start Date End Date No Ref-Primary, Physician PCP - General 11/16/20 02/11/21 Jessica Ferrara MD PCP - General Internal Medicine 02/12/21 08/16/21 Edilberto-Alissa Garcia, [facility] [address] [place] [address] PCP - General Loan Underwriter - Clinical 08/17/21 08/26/21 [place] [address] [place] [address] PCP - General Family Medicine 08/27/21 Jessica Maier CNM [address] [facility] [place] [address] Assigned OBGYN Provider 09/11/20 01/15/22 Luci Sanches, [facility] [address] [place] [address] [place] [address] Loan Underwriter Loan Underwriter - Clinical 09/15/20 Joana Roland, [facility] Other (see comments) Primary Care - CC 12/31/20 04/29/21 Jessica Ferrara MD [facility] [address] [place] [address] Assigned PCP 01/21/21 09/04/21 Chaparro Vargas MD [address] [place] [address] Gastroenterology 03/22/21 Chaparro Vargas MD [address] [place] [address] Assigned Gastroenterology Provider 05/16/21 11/11/22 Robbie Shrestha Personal Advocate & Liaison (PAL) 08/27/21 02/06/22 [place] [address] [place] [address] Assigned PCP 09/05/21 Genaro Jimenez Personal Advocate & Liaison (PAL) 02/07/22 01/29/23 Shahnaz Barber Personal Advocate & Liaison (PAL) Family Medicine 01/30/23 documented as of this encounter
--- OUTSIDE RECORDS SUMMARY | 2025-05-25 06:21 | XMS_ITS | Encounter Summary ---
Author Organization [facility] Address [address] [place] [address] Care Team Providers Care Associate Store Leader Name Role Phone Jessica Maier SETH Unavailable No Ref-Primary, Physician Primary Care Provider Luci Sanches [facility] Unavailable [phone] Joana Roland RN Unavailable Unavailable Jessica Ferrara MD Primary Care Provider Jessica Ferrara MD Unavailable [phone] Chaparro Vargas MD Unavailable Chaparro Vargas MD Unavailable Alissa Payan [facility] Primary Care Provid er Unavailable Isha Cox MD Primary Care Provider [phone] Robbie Shrestha Unavailable Unavailable Isha Cox MD Unavailable Genaro Jimenez Unavailable Unavailable Shahnaz Barber Unavailable Unavailable Encounter Details Date Type Department Care Team (Late st Contact Info) Description 12/10/2020 MyC Medical Advice [facility] Mental Health & Addiction [facility] [address] [place] [address] [address] [place] [address] Luci Sanches, IMMIGRATION PATROL INSPECTOR [address] [facility] [address] [facility] [facility] [place] [id number] Social History Tobacco Use Types Packs/Day Years [...] and Family Not on file 07/23/2020 Attends Scientology Services Not on file 07/23 Active Member [...] Answer Date Recorded PHQ-2 Score 1 12/14/2020 [facility] Occupat ional Health - Occupational Stress Questionnaire [...] on file Legal Sex Female 3:35 AM E LEARNING MANAGER Gender Identity Not on file Sexual Orientation Not on file COVID-19 Exposure Response Date Recorded In the last month, have you been in contact with someone who was confirmed or suspected to have Coronavirus / COVID-19? No / Unsure 11/16/2020 10:15 AM E LEARNING MANAGER documented as of this encounter Plan of Treatment Not on file documented as of this encounter Visit Diagnoses Not on filedocumented in this encounter Additional Health Concerns Assessment Noted Time PHQ-9 Depression Total Score: 4 11/02/20 20 1:10 PM E LEARNING MANAGER documented as of this encounter Care Teams Associate Store Leader Relationship Specialty Start Date End Date No Ref-Primary, Physician PCP - General 11/16/20 02/11/21 Jessica Ferrara MD PCP - General Internal Medicine 02/12/21 08/16/21 Alissa Payan, [facility] [address] [place] [address] PCP - General Iron Plastic Bullet Maker - Clinical 08/17/21 08/26/21 [place] [address] [place] [address] PCP - General Family Medicine 08/27/21 Jessica Maier CNM [address] [address] Assigned OBGYN Provider 09/11/20 01/15/22 Luci Sanches, [facility] [address] [place] [address] [address] [place] [address] Iron Plastic Bullet Maker Iron Plastic Bullet Maker - Clinical 09/15/20 Joana Roland, [facility] Other (see comments) Primary Care - CC 12/31/20 04/29/21 Jessica Ferrara MD [facility] [address] [place] [address] Assigned PCP 01/21/21 09/04/21 Chaparro Vargas MD [address] [place] [address] Gastroenterology 03/22/21 Chaparro Vargas MD [address] [place] [address] Assigned Gastroenterology Provider 05/16/21 11/11/22 Robbie Shrestha Personal Advocate & Liaison (PAL) 08/27/21 02/06/22 [place] [address] [place] [address] Assigned PCP 09/05/21 Genaro Jimenez Personal Advocate & Liaison (PAL) 02/07/22 01/29/23 Shahnaz Barber Personal Advocate & Liaison (PAL) Family Medicine 01/30/23 documented as of this encounter
--- OUTSIDE RECORDS SUMMARY | 2025-05-25 06:21 | XMS_ITS | Encounter Summary ---
Author Organization [facility] Address [address] [place] [address] Care Team Providers Care Flour Worker Name Role Phone Jessica Maier SETH Unavailable No Ref-Primary, Physician Primary Care Provider Luci Sanches [facility] Unavailable [phone] Joana Roland RN Unavailable Unavailable Jessica Ferrara MD Primary Care Provider Jessica Ferrara MD Unavailable Chaparro Vargas MD Unavailable Chaparro Vargas MD Unavailable Alissa Payan [facility] Primary Care Provid er Unavailable Isha Cox MD Primary Care Provider Robbie Shrestha Unavailable Unavailable Isha Cox MD Unavailable Genaro Jimenez Unavailable Unavailable Shahnaz Barber Unavailable Unavailable Encounter Details Date Type Department Care Team (Late st Contact Info) Description 11/26/2020 MyC Medical Advice [facility] Mental Health & Addiction [facility] [address] [place] [address] [address] [place] [address] Luci Sanches, DIRECTOR OF SOCIAL MEDIA MARKETING [address] [facility] [address] [facility] [facility] [place] [id number] Social History Tobacco Use Types Packs/Day Years [...] and Family Not on file 07/23/2020 Attends Buddhist Services Not on file 07/23 Active Member [...] on file Legal Sex Female 3:35 AM CANVAS PRODUCTS SALES REPRESENTATIVE Gender Identity Not on file Sexual Orientation Not on file COVID-19 Exposure Response Date Recorded In the last month, have you been in contact with someone who was confirmed or suspected to have Coronavirus / COVID-19? No / Unsure 11/16/2020 10:15 AM CANVAS PRODUCTS SALES REPRESENTATIVE documented as of this encounter Plan of Treatment Not on file documented as of this encounter Visit Diagnoses Not on filedocumented in this encounter Additional Health Concerns Assessment Noted Time PHQ-9 Depression Total Score: 4 11/02/20 20 1:10 PM CANVAS PRODUCTS SALES REPRESENTATIVE documented as of this encounter Care Teams Flour Worker Relationship Specialty Start Date End Date No Ref-Primary, Physician PCP - General 11/16/20 02/11/21 Jessica Ferrara MD PCP - General Internal Medicine 02/12/21 08/16/21 Edilberto-Alissa Garcia, [facility] [address] [place] [address] PCP - General Vpk Teacher - Clinical 08/17/21 08/26/21 [place] [address] [place] [address] PCP - General Family Medicine 08/27/21 Jessica Maier CNM [address] [address] Assigned OBGYN Provider 09/11/20 01/15/22 Luci Sanches, [facility] [address] [place] [address] [address] [place] [address] Vpk Teacher Vpk Teacher - Clinical 09/15/20 Joana Rloand, [facility] Other (see comments) Primary Care - CC 12/31/20 04/29/21 Jessica Ferrara MD [facility] [address] [place] [address] Assigned PCP 01/21/21 09/04/21 Chaparro Vargas MD [address] [place] [address] Gastroenterology 03/22/21 Chaparro Vargas MD [address] [place] [address] Assigned Gastroenterology Provider 05/16/21 11/11/22 Robbie Shrestha Personal Advocate & Liaison (PAL) 08/27/21 02/06/22 [place] [address] [place] [address] Assigned PCP 09/05/21 Genaro Jimenez Personal Advocate & Liaison (PAL) 02/07/22 01/29/23 Shahnaz Barber Personal Advocate & Liaison (PAL) Family Medicine 01/30/23 documented as of this encounter
--- OUTSIDE RECORDS SUMMARY | 2025-05-25 06:21 | XMS_ITS | Encounter Summary ---
Author Organization [facility] Address [address] [place] [address] Care Team Providers Care Teaching Young Name Role Phone Jessica Maier SETH Unavailable No Ref-Primary, Physician Primary Care Provider Luci Sanches [facility] Unavailable Joana Roland RN Unavailable Unavailable Jessica Ferrara MD Primary Care Provider Jessica Ferrara MD Unavailable [phone] Chaparro Vargas MD Unavailable Chaparro Vargas MD Unavailable Alissa Payan [facility] Primary Care Provid er Unavailable Isha Cox MD Primary Care Provider [phone] Robbie Shrestha Unavailable Unavailable Isha Cox MD Unavailable Genaro Jimenez Unavailable Unavailable Shahnaz Barber Unavailable Unavailable Encounter Details Date Type Department Care Team (Late st Contact Info) Description 12/23/2020 MyC Medical Advice [facility] Mental Health & Addiction [facility] [address] [place] [address] [address] [place] [address] Luci Sanches, TUFTING MACHINE OPERATOR SINGLE NEEDLE [address] [facility] [address] [facility] [place] [id number] Social History Tobacco Use Types Packs/Day Years [...] and Family Not on file 07/23/2020 Attends Congregation Services Not on file 07/23 Active Member [...] Answer Date Recorded PHQ-2 Score 1 12/14/2020 [facility] Occupat ional Health - Occupational [...] on file Legal Sex Female 3:35 AM VOIP NETWORK ENGINEER Gender Identity Not on file Sexual Orientation Not on file documented as of this encounter Plan of Treatment Not on file documented as of this encounter Visit Diagnoses Not on filedocumented in this encounter Additional Health Concerns Assessment Noted Time PHQ-9 Depression Total Score: 2 12/14/19 12:10 PM VOIP NETWORK ENGINEER documented as of this encounter Care Teams Teaching Young Relationship Specialty Start Date End Date No Ref-Primary, Physician PCP - General 11/16/20 02/11/21 Jessica Ferrara MD PCP - General Internal Medicine 02/12/21 08/16/21 Alissa Payan, [facility] [address] [place] [address] PCP - General Appliquer - Clinical 08/17/21 08/26/21 [place] [address] [place] [address] PCP - General Family Medicine 08/27/21 Jessica Maier CNM [address] [address] Assigned OBGYN Provider 09/11/20 01/15/22 Luci Sanches, [facility] [address] [facility] [address] [place] [address] Appliquer Appliquer - Clinical 09/15/20 Joana Roland, RN Other (see comments) Primary Care - CC 12/31/20 04/29/21 Jessica Ferrara MD [facility] [address] [place] [address] Assigned PCP 01/21/21 09/04/21 Chaparro Vargas MD [address] [place] [address] Gastroenterology 03/22/21 Chaparro Vargas MD [address] [place] [address] Assigned Gastroenterology Provider 05/16/21 11/11/22 Robbie Shrestha Personal Advocate & Liaison (PAL) 08/27/21 02/06/22 [place] [address] [place] [address] Assigned PCP 09/05/21 Genaro Jimenez Personal Advocate & Liaison (PAL) 02/07/22 01/29/23 Shahnaz Barber Personal Advocate & Liaison (PAL) Family Medicine 01/30/23 documented as of this encounter
--- OUTSIDE RECORDS SUMMARY | 2025-05-25 06:21 | XMS_ITS | Encounter Summary ---
Author Organization [facility] Address [address] [place] [address] Care Team Providers Care Long Wall Shear Operator Name Role Phone Clinic - [facility] Primary Care P juani Jessica Maier CNM Unavailable [phone] No Ref-Primary, Physician Primary Care Provider Luci Sanches [facility] Unavailable [phone] Joana Roland RN Unavailable Unavailable Jessica Ferrara MD Primary Care Provider Jessica Ferrara MD Unavailable [phone] Chaparro Vargas MD Unavailable Chaparro Vargas MD Unavailable Alissa Payan [facility] Primary Care Provid er Unavailable Isha Cox MD Primary Care Provider Robbie Shrestha Unavailable Unavailable Isha Cox MD Unavailable Genaro Jimenez Unavailable Unavailable Shahnaz Barber Unavailable Unavailable Encounter Details Date Type Department Care Team (Late st Contact Info) Description 09/11/2020 [place] Medical Advice [facility] Mental Health & Addiction [facility] [address] [place] [address] Luci Sanches, [address] [place] [address] Social History Tobacco Use Types Packs/Day Years [...] and Family Not on file 07/23/2020 Attends Restorationist Services Not on file 07/23 Active Member [...] Answer Date Recorded PHQ-2 Score 2 09/14/2020 [facility] Occupat ional Health - Occupational [...] on file Legal Sex Female 3:35 AM 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 Gender Identity Not on file Sexual Orientation [...] documented as of this encounter Care Teams Long Wall Shear Operator Relationship Specialty Start Date End Date Clinic - [address] [place] [address] PCP - General 09/24/19 11/15/20 No Ref-Primary, Physician PCP - General 11/16/20 02/11/21 Jessica Ferrara MD PCP - General Internal Medicine 02/12/21 08/16/21 Alissa Payan, CRABBER [address] [place] [address] PCP - General Bobbin Presser - Clinical 08/17/21 08/26/21 [place] [address] [place] [address] PCP - General Family Medicine 08/27/21 Jessica Maier CNM [address] [place] [address] Assigned OBGYN Provider 09/11/20 01/15/22 Luci Sanches, CRABBER [address] [facility] [place] [address] Bobbin Presser Bobbin Presser - Clinical 09/15/20 Joana Roland, RN Other (see comments) Primary Care - CC 12/31/20 04/29/21 Jessica Ferrara MD [facility] [address] [place] [address] Assigned PCP 01/21/21 09/04/21 Chaparro Vargas MD [address] [place] [address] Gastroenterology 03/22/21 Chaparro Vargas MD [address] [place] [address] Assigned Gastroenterology Provider 05/16/21 11/11/22 Robbie Shrestha Personal Advocate & Liaison (PAL) 08/27/21 02/06/22 [place] [address] [place] [address] Assigned PCP 09/05/21 Genaro Jimenez Personal Advocate & Liaison (PAL) 02/07/22 01/29/23 Shahnaz Barber Personal Advocate & Liaison (PAL) Family Medicine 01/30/23 documented as of this encounter
--- OUTSIDE RECORDS SUMMARY | 2025-05-25 06:21 | XMS_ITS | Encounter Summary ---
Author Organization [place] Address [address] [place] [address] Care Team Providers Care Manager Billing Name Role Phone JeroramyLuci Unavailable [phone] Chaparro Vargas MD Unavailable Isha Cox MD Primary Care Provider [phone] Isha Cox MD Unavailable Shahnaz Barber Unavailable Unavailable Encounter Details Date Type Department Care Team (Late st Contact Info) Description 04/03/2023 [facility] Medical Advice [address] [address] Noni Asif, DIGITAL COMMUNICATIONS MANAGER Social History Tobacco Use Types Packs/Day Years [...] often do you attend chur ch or baptism services? Patient declined 01/27/2023 Do you belong to any clubs o r organizations such as yazidism groups, unions, fraternal or athletic groups, or [...] Answer Date Recorded PHQ-2 Score 0 01/30/2023 [facility] Occupat ional Health - [...] place to sleep or slept in a detention (including now)? No 01/27/2023 Comments No Sex and Gender Information Value Date Recorded Sex Assigned at Not on file Legal Sex Female 3:35 AM TOWEL SORTER Gender Identity Not on file Sexual Orientation Not on file documented as of this encounter Plan of Treatment Not on file documented as of this encounter Visit Diagnoses Not on filedocumented in this encounter Additional Health Concerns Assessment Noted Time PHQ-9 Depression Total Score: 0 01/31/20 23 5:11 PM CDT documented as of this encounter Care Teams Manager Billing Relationship Specialty [place] [address] [place] [address] PCP - General Family Medicine 08/27/21 Luci Sanches, [facility] [address] [place] [address] [place] [address] Lottery Office Manager Lottery Office Manager - Clinical 09/15/20 Chaparro Vargas MD [address] [place] [address] Gastroenterology 03/22/21 [place] [address] [place] [address] Assigned PCP 09/05/21 Shahnaz Barber Personal Advocate & Liaison (PAL) Family Medicine 01/30/23 documented as of this encounter
--- OUTSIDE RECORDS SUMMARY | 2025-05-25 06:22 | XMS_ITS | Encounter Summary ---
Author Organization [place] Address [address] [place] [address] Care Team Providers Care Transmitter Chief Name Role Phone Jessica Maier CN Unavailable [phone] Luci Sanches [facility] Unavailable [phone] Joana Roland RN Unavailable Unavailable Jessica Ferrara MD Primary Care Provider Jessica Ferrara MD Unavailable [phone] Chaparro Vargas MD Unavailable Chaparro Vargas MD Unavailable Alissa Payan [facility] Primary Care Provid er Unavailable Isha Cox MD Primary Care Provider [phone] Robbie Shrestha Unavailable Unavailable Isha Cox MD Unavailable Genaro Jimenez Unavailable Unavailable Shahnaz Barber Unavailable Unavailable Encounter Details Date Type Department Care Team (Late st Contact Info) Description 02/22/2021 [facility] Medical Advice [facility] Care Coordination [facility] [address] [place] [id number] Joana Roland, RN Social History Tobacco Use [...] and Family Not on file 07/23/2020 Attends Yazidism Services Not on file 07/23 Active Member [...] 07/23/2020 PHQ-2 Answer Date Recorded PHQ-2 Score 0 02/11/2021 [facility] Occupat ional Health - Occupational Stress [...] on file Legal Sex Female 3:35 AM 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 No / Unsure 02/12/2021 7:02 AM CDT documented as of this encounter Plan of Treatment Not on file documented as of this encounter Visit Diagnoses Not on filedocumented in this encounter Additional Health Concerns Assessment Noted Time PHQ-9 Depression Total Score: 2 01/19/20 21 1:07 PM INDUSTRIAL COOK documented as of this encounter Care Teams Transmitter Chief Relationship Specialty Start Date End Date Jessica Ferrara MD PCP - General Internal Medicine 02/12/21 08/16/21 Edilberto-Alissa Garcia, [facility] [address] [place] [address] PCP - General Electric Milkers Installer - Clinical 08/17/21 08/26/21 [place] [address] [place] [address] PCP - General Family Medicine 08/27/21 Jessica Maier CNM [address] [address] Assigned OBGYN Provider 09/11/20 01/15/22 Luci Sanches, [facility] [address] [place] [address] [address] [place] [address] Electric Milkers Installer Electric Milkers Installer - Clinical 09/15/20 Joana Roland, [facility] Other (see comments) Primary Care - CC 12/31/20 04/29/21 Jessica Ferrara MD [facility] [address] [place] [address] Assigned PCP 01/21/21 09/04/21 Chaparro Vargas MD [address] [place] [address] Gastroenterology 03/22/21 Chaparro Vargas MD [address] [place] [address] Assigned Gastroenterology Provider 05/16/21 11/11/22 Robbie Shrestha Personal Advocate & Liaison (PAL) 08/27/21 02/06/22 [place] [address] [place] [address] Assigned PCP 09/05/21 Genaro Jimenez Personal Advocate & Liaison (PAL) 02/07/22 01/29/23 Shahnaz Barber Personal Advocate & Liaison (PAL) Family Medicine 01/30/23 documented as of this encounter
--- OUTSIDE RECORDS SUMMARY | 2025-05-25 06:22 | XMS_ITS | Encounter Summary ---
Author Organization [place] Address [address] [place] [address] Care Team Providers Care Oyster Preparer Name Role Phone Livier, Jessica Laurent CN Unavailable [phone] Luci Sanches [facility] Unavailable [phone] Joana Roland RN Unavailable Unavailable Jessica Ferrara MD Primary Care Provider Jessica Ferrara MD Unavailable Chaparro Vargas MD Unavailable Chaparro Vargas MD Unavailable Alissa Payan [facility] Primary Care Provid er Unavailable Isha Cox MD Primary Care Provider Robbie Shrestha Unavailable Unavailable Isha Cox MD Unavailable Genaro Jimenez Unavailable Unavailable Shahnaz Barber Unavailable Unavailable Encounter Details Date Type Department Care Team (Late st Contact Info) Description 04/27/2021 [facility] Medical Advice [facility] Mental Health & Addiction [facility] [address] [address] [place] [address] Luci Sanches, [place] [address] [facility] [address] [place] [address] Social History Tobacco Use Types Packs/Day Years [...] and Family Not on file 07/23/2020 Attends Rastafari Services Not on file 07/23 Active Member [...] or more points; Administer PHQ-9 if positive 1 03/21/2021 [facility] Occupat ional [facility] - Occupational Stress Questionnaire Answer Date [...] on file 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 Gender Identity Not on file Sexual Orientation Not on file documented as of this encounter Plan of Treatment Not on file documented as of this encounter Visit Diagnoses Not on filedocumented in this encounter Additional Health Concerns Assessment Noted Time PHQ-9 Depression Total Score: 2 03/22/20 21 7:02 AM CDT documented as of this encounter Care Teams Oyster Preparer Relationship Specialty Start Date End Date Jessica Ferrara MD PCP - General Internal Medicine 02/12/21 08/16/21 EdilbertoAlissa Garcia, [facility] [address] [place] [address] PCP - General Certified Endoscopy Technician - Clinical 08/17/21 08/26/21 [place] [address] [place] [address] PCP - General Family Medicine 08/27/21 Jessica Maier CNM [address] [address] Assigned OBGYN Provider 09/11/20 01/15/22 Luci Sanches, [facility] [address] [place] [address] [address] [facility] [place] [place] [address] Certified Endoscopy Technician Certified Endoscopy Technician - Clinical 09/15/20 Joana Roland, RN Other (see comments) Primary Care - CC 12/31/20 04/29/21 Jessica Ferrara MD [facility] [address] [place] [address] Assigned PCP 01/21/21 09/04/21 Chaparro Vargas MD 9 [place] [address] Gastroenterology 03/22/21 Chaparro Vargas MD [address] [place] [address] Assigned Gastroenterology Provider 05/16/21 11/11/22 Robbie Shrestha Personal Advocate & Liaison (PAL) 08/27/21 02/06/22 [place] [address] [place] [address] Assigned PCP 09/05/21 Genaro Jimenez Personal Advocate & Liaison (PAL) 02/07/22 01/29/23 Shahnaz Barber Personal Advocate & Liaison (PAL) Family Medicine 01/30/23 documented as of this encounter
--- OUTSIDE RECORDS SUMMARY | 2025-05-25 06:22 | XMS_ITS | Encounter Summary ---
Author Organization [place] Address [address] [place] [address] Care Team Providers Care Red Cross Executive Director Name Role Phone LivierJessica Unavailable [phone] Luci Sanches [facility] Unavailable Jessica Ferrara MD Primary Care Provider Jessica Ferrara MD Unavailable Chaparro Vargas MD Unavailable Chaparro Vargas MD Unavailable Alissa Payan [facility] Primary Care Provid er Unavailable Isha Cox MD Primary Care Provider Robbie Shrestha Unavailable Unavailable Isha Cox MD Unavailable Genaro Jimenez Unavailable Unavailable Shahnaz Barber Unavailable Unavailable Encounter Details Date Type Department Care Team (Late st Contact Info) Description 05/24/2021 [facility] Medical Advice [facility] Mental Health & Addiction [facility] [address] [place] [address] Luci Sanches, [address] [facility] [place] [address] Social History Tobacco Use Types Packs/Day Years [...] and Family Not on file 07/23/2020 Attends Mosque Services Not on file 07/23 Active Member [...] points; Administer PHQ-9 if positive 1 03/21/2021 [facility] Occupat ional Health - Occupational Stress [...] on file 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 No / Unsure 05/10/2021 8:15 AM CDT documented as of this encounter Plan of Treatment Not on file documented as of this encounter Visit Diagnoses Not on filedocumented in this encounter Additional Health Concerns Assessment Noted Time PHQ-9 Depression Total Score: 2 03/22/20 21 7:02 AM CDT documented as of this encounter Care Teams Red Cross Executive Director Relationship Specialty Start Date End Date Jessica Ferrara MD [address] [place] [address] [address] [place] [address] PCP - General Internal Medicine 02/12/21 08/16/21 Alissa Payan [facility] [address] [place] [address] PCP - General Teacher Of The Visually Impaired - Clinical 08/17/21 08/26/21 [place] [address] [place] [address] PCP - General Family Medicine 08/27/21 Jessica Maier CNM [address] [address] Assigned OBGYN Provider 09/11/20 01/15/22 Luci Sanches, [facility] [address] [place] [address] [place] [address] Teacher Of The Visually Impaired Teacher Of The Visually Impaired - Clinical 09/15/20 Jessica Ferrara MD [facility] [address] [address], [place] [address] Assigned PCP 01/21/21 09/04/21 Chaparro Vargas MD [address] [place] [address] Gastroenterology 03/22/21 Chaparro Vargas MD [address] [place] [address] Assigned Gastroenterology Provider 05/16/21 11/11/22 Robbie Shrestha Personal Advocate & Liaison (PAL) 08/27/21 02/06/22 [place] [address] [place] [address] Assigned PCP 09/05/21 Genaro Jimenez Personal Advocate & Liaison (PAL) 02/07/22 01/29/23 Shahnaz Barber Personal Advocate & Liaison (PAL) Family Medicine 01/30/23 documented as of this encounter
--- OUTSIDE RECORDS SUMMARY | 2025-05-25 06:22 | XMS_ITS | Encounter Summary ---
Author Organization [place] Address [address] [place] [address] Care Team Providers Care Associate Field Service Engineer Name Role Phone Livier, Jessica Laurent CN Unavailable [phone] Luci Sanches [facility] Unavailable [phone] Joana Roland RN Unavailable Unavailable Jessica Ferrara MD Primary Care Provider Jessica Ferrara MD Unavailable [phone] Chaparro Vargas MD Unavailable Chaparro Vargas MD Unavailable Alissa Payan [facility] Primary Care Provid er Unavailable Isha Cox MD Primary Care Provider Robbie Shrestha Unavailable Unavailable Isha Cox MD Unavailable Genaro Jimenez Unavailable Unavailable Shahnaz Barber Unavailable Unavailable Encounter Details Date Type Department Care Team (Late st Contact Info) Description 04/22/2021 [facility] Medical Advice [facility] Mental Health & Addiction [facility] [address] [address] [place] [address] Luci Sanches, [place] [id number] [facility] [address] [facility] [place] [address] Social History Tobacco Use Types Packs/Day Years [...] points; Administer PHQ-9 if positive 1 03/21/2021 [facility] Occupat ional [facility] - Occupational Stress Questionnaire Answer Date Recorded [...] on file Legal Sex Female 3:35 AM RN CORRECTIONS Gender Identity Not on file Sexual Orientation Not on file documented as of this encounter Plan of Treatment Not on file documented as of this encounter Visit Diagnoses Not on filedocumented in this encounter Additional Health Concerns Assessment Noted Time PHQ-9 Depression Total Score: 2 03/22/20 21 7:02 AM CDT documented as of this encounter Care Teams Associate Field Service Engineer Relationship Specialty Start Date End Date Jessica Ferrara MD PCP - General Internal Medicine 02/12/21 08/16/21 EdilbertoAlissa Garcia, [facility] [address] [place] [address] PCP - General Sign Painter Helper - Clinical 08/17/21 08/26/21 [place] [address] [place] [address] PCP - General Family Medicine 08/27/21 Jessica Maier CNM [address] [address] Assigned OBGYN Provider 09/11/20 01/15/22 Luci Sanches, [facility] [address] [place] [address] [address] [place] [address] Sign Painter Helper Sign Painter Helper - Clinical 09/15/20 Joana Roland, RN Other (see comments) Primary Care - CC 12/31/20 04/29/21 Jessica Ferrara MD [facility] [address] [place] [address] Assigned PCP 01/21/21 09/04/21 Chaparro Vargas MD [address] [place] [address] Gastroenterology 03/22/21 Chaparro Vargas MD 9 [place] [address] Assigned Gastroenterology Provider 05/16/21 11/11/22 Robbie Shrestha Personal Advocate & Liaison (PAL) 08/27/21 02/06/22 [place] [address] [place] [address] Assigned PCP 09/05/21 Genaro Jimenez Personal Advocate & Liaison (PAL) 02/07/22 01/29/23 Shahnaz Barber Personal Advocate & Liaison (PAL) Family Medicine 01/30/23 documented as of this encounter
--- OUTSIDE RECORDS SUMMARY | 2025-05-25 06:22 | XMS_ITS | Encounter Summary ---
Author Organization [place] Address [address] [place] [address] Care Team Providers Care Technology Professional Name Role Phone Jessica Maier CN Unavailable [phone] Luci Sanches [facility] Unavailable [phone] Jessica Ferrara MD Primary Care Provider Jessica Ferrara MD Unavailable [phone] Chaparro Vargas MD Unavailable Chaparro Vargas MD Unavailable Alissa Payan Primary Care Provid er Unavailable Isha Cox MD Primary Care Provider [phone] Robbie Shrestha Unavailable Unavailable Isha Cox MD Unavailable Genaro Jimenez Unavailable Unavailable Shahnaz Barber Unavailable Unavailable Encounter Details Date Type Department Care Team (Late st Contact Info) Description 07/13/2021 [facility] Medical Advice [facility] Mental Health & Addiction [facility] [address] [place] [address] Alissa Payan LICSW Social History Tobacco Use Types Packs/Day Years [...] and Family Not on file 07/23/2020 Attends Episcopal Services Not on file 07/23 Active Member [...] 07/23/2020 PHQ-2 Answer Date Recorded PHQ-2 Score 5 07/13/2021 [facility] of Occupat ional Health - Occupational [...] on file 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 Gender Identity Not on file Sexual Orientation Not on file documented as of this encounter Plan of Treatment Not on file documented as of this encounter Visit Diagnoses Not on filedocumented in this encounter Additional Health Concerns Assessment Noted Time PHQ-9 Depression Total Score: 13 021 7:32 PM CDT documented as of this encounter Care Teams Technology Professional Relationship Specialty Start Date End Date Jessica Ferrara MD 0 [facility] [address] [place] [address] PCP - General Internal Medicine 02/12/21 08/16/21 Alissa Payan, [facility] [address] [place] [address] PCP - General Professional Skater - Clinical 08/17/21 08/26/21 [place] [address] [place] [address] PCP - General Family Medicine 08/27/21 Jessica Maier CNM [address] [address] Assigned OBGYN Provider 09/11/20 01/15/22 Luci Sanches, [facility] 0 [facility] [address] [facility] [place] [address] Professional Skater Professional Skater - Clinical 09/15/20 Jessica Ferrara MD [facility] [address] [place] [address] Assigned PCP 01/21/21 09/04/21 Chaparro Vargas MD [address] [place] [address] Gastroenterology 03/22/21 Chaparro Vargas MD 9 [place] [address] Assigned Gastroenterology Provider 05/16/21 11/11/22 Robbie Shrestha Personal Advocate & Liaison (PAL) 08/27/21 02/06/22 [place] [address] [place] [address] Assigned PCP 09/05/21 Genaro Jimenez Personal Advocate & Liaison (PAL) 02/07/22 01/29/23 Shahnaz Barber Personal Advocate & Liaison (PAL) Family Medicine 01/30/23 documented as of this encounter
--- OUTSIDE RECORDS SUMMARY | 2025-05-25 06:22 | XMS_ITS | Clinical Summary ---
Author Organization [facility] Address [address] [place] [address] Care Team Providers Care Apple Checker Name Role Phone Karie Zurita Primary Care Provid er Unavailable Allergies No known active allergies Medications hyoscyamine sublingual (LEVSIN/SL) 0.125 mg sublIndications:Ab dominal pain, RUQ (right upper quadrant) Place 1 tablet under the tongue 4 times daily if needed for Colic. 20 tablet 7 Active triamcinolone (ARISTOCORT) 0.5 % ointmentIndication s:Dermatitis Apply topically to affected area(s) 3 times daily. 15 g 8 Active clobetasol cream 0.05% (TEMOVATE) 0.05 % cream APPLY TO AFFECTED AREA(S) OF THE FINGERS/HANDS TWO TIMES A DAY FOR NO MORE THAN 2 WEEKS PER MONTH 1 8 Active polyethylene glycoL (MIRALAX) 17 gram/dose powderIndications: Constipation, unspecified constipation type Take 17 g by mouth once daily if needed for Constipation. 1 jar 5 8 Active omeprazole (PRILOSEC) 40 mg Delayed-Release capsuleIndications :Gastritis, presence of bleeding unspecified, unspecified chronicity, unspecified gastritis type TAKE ONE CAPSULE BY MOUTH ONCE DAILY 90 capsule 2 9 Active ondansetron (ZOFRAN) 4 mg tablet Take 4 mg by mouth. 9 Active ondansetron (ZOFRAN ODT) 4 mg disintegrating tabletIndications: Abdominal pain, RUQ (right upper quadrant) Place 1 tablet on the tongue every 8 hours if needed for Nausea/Vomiti ng. 10 tablet 0 Active metoclopramide HCl (REGLAN) 10 mg tabletIndications: Non-intractable vomiting with nausea, unspecified vomiting type Take 1 tablet by mouth every 6 hours if needed for Nausea/Vomiti ng. 15 tablet 0 Active TRI FEMYNOR 0.18/0.215/0.25 mg-35 mcg (28) tabletIndications: Encounter for surveillance of contraceptive pills TAKE 1 TABLET BY MOUTH EVERY DAY 84 tablet 0 Active Active Problems Problem Noted Date Diagnosed Date Abdominal pain, RUQ (right upper quadrant) 08/31 Patient underweight 08/24/2017 Contraceptive surveillance 2017 Assessment & Plan (12/05/2017 8:17 AM CHEMIST ASSISTANT): Contraceptive Management: Current contraception: OCP (estrogen/progesterone) does not wish to change method. History of liver disease, breast cancer, blood clots, stroke or migraine with aura: no History of osteoporosis/osteopenia: no Plan: Continue current treatment plan., recheck in 1 year. Assessment & Plan (2017 12:00 PM CHEMIST ASSISTANT): Contraceptive Management: Current contraception: OCP (estrogen/progesterone) does not wish to change method. History of liver disease, breast cancer, blood clots, stroke or migraine with aura: no History of osteoporosis/osteopenia: no Acne 04/30/2014 Menorrhagia 04/30/2014 Allergic rhinitis 04/29/2013 Immunizations Immunization Administration Dates Next Due DTaP 03/21/2003, 9,1998,05/16,1998 Hepatitis A (Peds) 03/04/2005,06/30/2004 Hepatitis B (Peds) 1998,1998, 998 Hib Conjugate, Unspecified 04/03/1999,,1998,03/14 Human Papilloma Virus Vaccine 05/18/2015, 014,04/29/2013 Inactivated Polio Vaccine 1998,1998 Influenza Virus, Unspecified 10/01/2002,08/30/20 02 Influenza, IIV3 (Age >=3 years) 10/25/2011,10/01,08/30/2002 Influenza, IIV4 08/24/2017 MENINGOCOCCAL VACCINE 2 VIAL 2MO-55YO (MENVEO) 04/30/2014 MMR 03/21/2003,04/03/1999 Meningococcal Vaccine (Menactra) 06/10/2009 Oral Polio Vaccine 1998 Polio Virus, Unspecified 03/21/2003 Tdap 06/10/2009 Varicella Vaccine 06/09/2008,1998 Family History Medical History Relation Name Comments Unknown Father Good Health Half-Brother Good Health Half-Sister Cancer Mother brain cancer; g leoblastoma Stage 4 Relation Name Status Comments Father Alive Half-Brother Alive Half-Sister Alive Mother Alive Social History Tobacco Use Types Packs/Day Years Used Date Smoking Tobacco: Every Day Smokeless Tobacco: Never Comments:vaping a couple of times each day Alcohol Use Standard Drinks/Week Comments Yes 5 (1 standard drink = 0.6 oz pur e alcohol) PHQ-2 Answer Date Recorded PHQ-2 Score 0 07/04/2019 Comments No Sex and Gender Information Value Date Recorded Sex Assigned at Not on file Legal Sex Female 8:16 AM CHEMIST ASSISTANT Gender Identity Not on file Sexual Orientation Not on file Obstetrics History Para Term AB IAB SAB Ectopic Multiple Livin g Live Births 0 0 0 0 0 0 0 0 0 0 Last Filed Vital Signs Vital Sign Reading Time Taken Comments Blood Pressure 114/73 01/05/2020 11:58 AM CHEMIST ASSISTANT Pulse 79 01/05/2020 10:35 AM CHEMIST ASSISTANT Temperature 36.3 C (97.4 F) 01/05/2020 8:11 AM CHEMIST ASSISTANT Respiratory Rate 16 01/05/2020 10:35 AM CHEMIST ASSISTANT Oxygen Saturation 96% 01/05/2020 10:35 AM CHEMIST ASSISTANT Inhaled Oxygen Concentration - - Weight 45.4 kg (100 lb) 01/05/2020 8:10 AM CHEMIST ASSISTANT Height 162.6 cm (5' 4) 01/05/2020 8:10 AM CHEMIST ASSISTANT Body Mass Index 17.16 01/05/2020 8:10 AM CHEMIST ASSISTANT Plan of Treatment Health Maintenance Due Date Last Done Comments HIV for age 15-65 2013 Hepatitis C screening for age 18-79 2016 Pap test for age 21-65 2019 Tetanus booster 06/10/2019 06/10/2009 BMI (ht and wt on same day) for age 18+ 07/04/2020 07/04/2019, 08/24/2017, 2017 Depression screening for age 12+ 07/04/2020 07/04/2019, 08/24/2017 COVID-19 vaccine series ( - 2023- season) 2024 Influenza Vaccine (#1) 2025 7, 10/25/2011, 10/01/2002, Additional history exists Hepatitis B series for 19+ Completed 10/10, 1998, 1998 Pneumococcal series for age 6-49 Aged Out No longer eligible based on patient's age to complete this topic Care Teams Apple Checker Relationship Specialty Start Date End Date Karie Zurita PA PCP - General Physician Statement Clerk 01/04/17
--- OUTSIDE RECORDS SUMMARY | 2025-05-25 06:22 | XMS_ITS | Encounter Summary ---
Author Organization [facility] Address [address] [place] [address] Care Team Providers Care Electrician Aircraft Name Role Phone Livier, Jessica Laurent CN Unavailable [phone] Luci Sanches [facility] Unavailable [phone] Joana Roland RN Unavailable Unavailable Jessica Ferrara MD Primary Care Provider Jessica Ferrara MD Unavailable Chaparro Vargas MD Unavailable Chaparro Vargas MD Unavailable Alissa Payan [facility] Primary Care Provid er Unavailable Isha Cox MD Primary Care Provider Robbie Shrestha Unavailable Unavailable Isha Cox MD Unavailable Genaro Jimenez Unavailable Unavailable Shahnaz Barber Unavailable Unavailable Encounter Details Date Type Department Care Team (Late st Contact Info) Description 03/18/2021 [facility] [place] [facility] Mental Health & Addiction [facility] [address] [address] [place] [address] Luci Sanches, [place] [id number] [facility] [place] [address] Social History Tobacco Use Types Packs/Day Years [...] and Family Not on file 07/23/2020 Attends Rastafarian Services Not on file 07/23 Active Member [...] points; Administer PHQ-9 if positive 1 03/21/2021 [facility] Occupat ional [facility] - Occupational Stress Questionnaire Answer Date Recorded [...] on file Legal Sex Female 3:35 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 Gender Identity Not on file Sexual Orientation Not on file documented as of this encounter Plan of Treatment Not on file documented as of this encounter Visit Diagnoses Not on filedocumented in this encounter Additional Health Concerns Assessment Noted Time PHQ-9 Depression Total Score: 2 03/22/20 21 7:02 AM CDT documented as of this encounter Care Teams Electrician Aircraft Relationship Specialty Start Date End Date Jessica Ferrara MD PCP - General Internal Medicine 02/12/21 08/16/21 EdilbertoAlissa Garcia, [facility] [address] [place] [address] PCP - General Rn Labor And Delivery - Clinical 08/17/21 08/26/21 [place] [address] [place] [address] PCP - General Family Medicine 08/27/21 Jessica Maier CNM [address] [address] Assigned OBGYN Provider 09/11/20 01/15/22 Luci Sanches, [facility] [address] [place] [address] [address] [place] [address] Rn Labor And Delivery Rn Labor And Delivery - Clinical 09/15/20 Joana Roland, RN Other (see comments) Primary Care - CC 12/31/20 04/29/21 Jessica Ferrara MD [facility] [address] [place] [address] Assigned PCP 01/21/21 09/04/21 Chaparro Vargas MD [address] [place] [address] Gastroenterology 03/22/21 Chaparro Vargas MD [address] [place] [address] Assigned Gastroenterology Provider 05/16/21 11/11/22 Robbie Shrestha Personal Advocate & Liaison (PAL) 08/27/21 02/06/22 [place] [address] [place] [address] Assigned PCP 09/05/21 Genaro Jimenez Personal Advocate & Liaison (PAL) 02/07/22 01/29/23 Shahnaz Barber Personal Advocate & Liaison (PAL) Family Medicine 01/30/23 documented as of this encounter
--- OUTSIDE RECORDS SUMMARY | 2025-05-25 06:22 | XMS_ITS | Clinical Summary ---
Author Organization [facility] Address [address] [place] [address] Care Team Providers Care Brine Maker Name Role Phone Unavailable Primary Care Provider Unavailabl e Source Comments You are receiving this document as you are listed as the primary care provider,follow-up provider, or the patient has been referred to you for consultation.This is in compliance with the Medicare and[facility] EHR Incentive Program,which states Providers who transition their patient to another setting of careor provider of care or refers their patient to another provider of care shouldprovide summary care record for each transition of care or referral. [facility] Allergies No known active allergies Medications norgestimate-eth inyl estradiol (TRI-LINYAH) 0.18/0.215/0.25 MG-35 MCG tablet Take 1 Tablet by mouth daily. Active ondansetron (ZOFRAN) 8 MG tablet Take 1 Tablet by mouth every 8 hours as needed for Nausea. 10 Tablet 03/06/2019 Active Active Problems No known active problems Social History Tobacco Use Types Packs/Day Years Used Date Smoking Tobacco: Never Smokeless Tobacco: Never Alcohol Use Standard Drinks/Week Comments Yes 0 (1 standard drink = 0.6 oz pur e alcohol) social Comments No Sex and Gender Information Value Date Recorded Sex Assigned at Not on file Legal Sex Female 4:04 PM CDT Gender Identity Not on file Sexual Orientation Not on file Last Filed Vital Signs Vital Sign Reading Time Taken Comments Blood Pressure 111/70 03/06/2019 4:14 PM CDT Pulse 129 03/06/2019 4:14 PM CDT Temperature 37.3 C (99.1 F) 03/06/2019 4:14 PM CDT Respiratory Rate 16 03/06/2019 4:14 PM CDT Oxygen Saturation 99% 03/06/2019 4:14 PM CDT Inhaled Oxygen Concentration - - Weight 48.5 kg (107 lb) 03/06/2019 4:14 PM CDT Height - - Body Mass Index - - Plan of Treatment Health Maintenance Due Date Last Done Comments Cervical Cancer Screening Due 1998 Hep C Screening (Preventive Services) 1998 HIV Screening (Preventive Services) 2014 Adult Preventive Visit 2016 HepB Vaccine (1) 2017 COVID-19 Vaccine (3 - 2023-2 5 season) 2024 01/20/2021, 12/30/2020 Influenza Vaccine (#1) 2025 9, 08/24/2017 DTaP/Tdap/Td Vaccine (2 - Tdap) 02/12/2031 02/12/2021 Zoster/Shingles Vaccine (1 o f 2) 2048 MCV4 Vaccine Completed 04/30/2014 HPV Vaccine Completed 02/12/2021, 05/18/2015, 04/30/2014 HepA Vaccine Aged Out No longer eligi ble based on patient's age to complete this topic Hib Vaccine Aged Out No longer eligi ble based on patient's age to complete this topic IPV (Polio) Vaccine Aged Out No longe r eligible based on patient's age to complete this topic Meningococcal B Vaccine Aged Out No l onger eligible based on patient's age to complete this topic Pneumococcal Vaccine Aged Out No long er eligible based on patient's age to complete this topic Insurance [id number] [facility] [place] [address] [place] [id number]
--- OUTSIDE RECORDS SUMMARY | 2025-05-25 06:22 | XMS_ITS | Encounter Summary ---
Author Organization [facility] Address [address] [place] [address] Care Team Providers Care Rehab Director Occupational Therapist Name Role Phone LivierJessica Unavailable [phone] [facility] Unavailable [phone] Jessica Ferrara MD Primary Care Provider Jessica Ferrara MD Unavailable Chaparro Vargas MD Unavailable Chaparro Vargsa MD Unavailable Alissa Payan [facility] Primary Care Provid er Unavailable Isha Cox MD Primary Care Provider Robbie Shrestha Unavailable Unavailable Isha Cox MD Unavailable Genaro Jimenez Unavailable Unavailable Shahnaz Barber Unavailable Unavailable Encounter Details Date Type Department Care Team (Late st Contact Info) Description 06/08/2021 [facility] Medical Advice [facility] Mental Health & Addiction [facility] [address] [place] [address] Luci Sanches, [address] [facility] [facility] [place] [address] Social History Tobacco Use Types Packs/Day Years [...] and Family Not on file 07/23/2020 Attends Adventism Services Not on file 07/23 Active Member [...] points; Administer PHQ-9 if positive 1 03/21/2021 [facility] Occupat ional Health - Occupational Stress [...] on file Legal Sex Female 3:35 AM AUTOCAD Gender Identity Not on file Sexual Orientation [...] documented as of this encounter Care Teams Rehab Director Occupational Therapist Relationship Specialty Start Date End Date Jessica Ferrara MD [address] [place] [address] [address] [place] [address] PCP - General Internal Medicine 02/12/21 08/16/[address] [facility] [address] [place] [address] PCP - General Medical Coding Instructor - Clinical 08/17/21 08/26/21 [place] [address] [place] [address] PCP - General Family Medicine 08/27/21 Jessica Maier CNM [address] [address] Assigned OBGYN Provider 09/11/20 01/15/22 Luci Sanches, [facility] [address] [place] [address] [place] [address] Medical Coding Instructor Medical Coding Instructor - Clinical 09/15/20 Jessica Ferrara MD [facility] [address] [address], [place] [address] Assigned PCP 01/21/21 09/04/21 Chaparro Vargas MD [address] [place] [address] Gastroenterology 03/22/21 Chaparro Vargas MD [address] [place] [address] Assigned Gastroenterology Provider 05/16/21 11/11/22 Robbie Shrestha Personal Advocate & Liaison (PAL) 08/27/21 02/06/22 [place] [address] [place] [address] Assigned PCP 09/05/21 Genaro Jimenez Personal Advocate & Liaison (PAL) 02/07/22 01/29/23 Shahnaz Barber Personal Advocate & Liaison (PAL) Family Medicine 01/30/23 documented as of this encounter
--- OUTSIDE RECORDS SUMMARY | 2025-05-25 06:22 | XMS_ITS | Encounter Summary ---
Author Organization [facility] Address [address] [place] [address] Care Team Providers Care Public Transit Specialist Name Role Phone Jessica Maier Anastasiia CN Unavailable [phone] Luci Sanches [facility] Unavailable [phone] Jessica Ferrara MD Unavailable [phone] Chaparro Vargas MD Unavailable Chaparro Vargas MD Unavailable Alissa Payan DIAL MAKER Primary Care Provid er Unavailable Isha Cox MD Primary Care Provider [phone] Robbie Shrestha Unavailable Unavailable Isha Cox MD Unavailable Genaro Jimenez Unavailable Unavailable Shahnaz Barber Unavailable Unavailable Encounter Details Date Type Department Care Team (Late st Contact Info) Description 08/17/2021 [facility] Medical Advice [facility] Mental Health & Addiction [facility] [address] [place] [phone] Alissa Pyaan DIAL MAKER Social History Tobacco Use Types Packs/Day Years [...] and Family Not on file 07/23/2020 Attends Worship Services Not on file 07/23 Active Member [...] Answer Date Recorded PHQ-2 Score 5 07/13/2021 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 No / Unsure 08/18/2021 11:26 AM CDT documented as of this encounter Plan of Treatment Not on file documented as of this encounter Visit Diagnoses Not on filedocumented in this encounter Additional Health Concerns Assessment Noted Time PHQ-9 Depression Total Score: 13 021 7:32 PM CDT documented as of this encounter Care Teams Public Transit Specialist Relationship Specialty Start Date End Date Casanova-Alissa Garcia, [facility] [address] [place] [address] PCP - General Lath Tier - Clinical 08/17/21 08/26/21 [place] [address] [place] [address] PCP - General Family Medicine 08/27/21 Jessica Maier CNM [address] [facility] [place] [address] Assigned OBGYN Provider 09/11/20 01/15/22 Luci Sanches, [facility] [address] [facility] [address] [facility] [address] Lath Tier Lath Tier - Clinical 09/15/20 Jessica Ferrara MD [facility] [address] [place] [address] Assigned PCP 01/21/21 09/04/21 Chaparro Vargas MD [address] [place] [address] Gastroenterology 03/22/21 Chaparro Vargas MD [address] [place] [address] Assigned Gastroenterology Provider 05/16/21 11/11/22 Robbie Shrestha Personal Advocate & Liaison (PAL) 08/27/21 02/06/22 [place] [address] [place] [address] Assigned PCP 09/05/21 Genaro Jimenez Personal Advocate & Liaison (PAL) 02/07/22 01/29/23 Shahnaz Barber Personal Advocate & Liaison (PAL) Family Medicine 01/30/23 documented as of this encounter
--- OUTSIDE RECORDS SUMMARY | 2025-05-25 06:22 | XMS_ITS | Patient Health Record ---
Author Organization [facility] Address [address] [place] [address] Care Team Providers Care Antique Clocks Repairer Name Role Phone DOMINIC MANUEL Unavailable [phone] Erick BEAN, [place] Unavailable [phone] Reason For Referral No Information Plan Of Treatment No Information Insurance Providers Payer Name Payer Address Payer Phone Subscriber Number Group Number Insured Name Patient Relationship to Insured Coverage Start Date Coverage End Date [facility] [address] [address] [place] [address] [phone] [id number] Ozzy David Child - Insured has Financial Responsibility 2
--- OUTSIDE RECORDS SUMMARY | 2025-05-25 06:22 | XMS_ITS | Clinical Summary ---
Author Organization [facility] Address [address] [place] [address] Care Team Providers Care Bacteriology Teacher Name Role Phone TaylorleonidasramyLuci Unavailable [phone] Chaparro Vargas MD Unavailable Isha Cox MD Primary Care Provider [phone] Isha Cox MD Unavailable Shahnaz Barber Unavailable Unavailable Allergies Active Allergy Reactions Criticality Noted Date Comments Seasonal Allergies 03/14/2025 Medications * This document contains information received from the source organization and may not represent a complete record from that organization. propranolol (INDERAL) 20 MG tablet Take 1 tablet (20 mg) by mouth 3 times daily as needed (anxieyt). 90 tablet 03/14/2025 Active hydrOXYzine HCl (ATARAX) 10 MG tablet Take 1 tablet (10 mg) by mouth nightly as needed for itching. 90 tablet 03/14/2025 Active vitamin D2 (ERGOCALCIFEROL ) 62950 units (1250 mcg) capsuleIndicati ons:Vitamin D deficiency Take 1 capsule (50,000 Units) by mouth once a week. 12 capsule 03/21/2025 Active Active Problems Problem Noted Date Diagnosed Date Vomiting 07/13/2020 Encounters Date Type Department Care Team Description 03/21/2025 MyC Medical Advice [facility] [address] [place] [phone] Leann Paeg RN 03/21/2025 Orders Only [facility] [address] [place] [phone] Isha Cox MD Vitamin D deficiency (Primary Dx) 03/14/2025 2:00 PM CDT Office Visit [address] [address] Isha Cox MD Well adult exam (Primary Dx); Screening for metabolic disorder; Encounter for vitamin deficiency screening; Screening for deficiency anemia 03/14/2025 Travel 03/10/2025 Travel from Last 3 Months Immunizations Immunization Administration Dates Next Due COVID-19 MONOVALENT 12+ (Pfizer) 01/20/2021,12/21 DTAP (<7y) 03/21/2003, 9,1998,05/16,1998 Flu, Unspecified 10/01/2002,08/30/2002 HIB (PRP-T) 1998,1998,1998 HIB, Unspecified 04/03/1999, 8,1998,03/14 HPV Quadrivalent 05/18/2015,04/30/2014, 3 HPV9 (Gardasil) 02/12/2021 HepB 1998,1998,1998 Hepatitis A (Vaqta/Havrix)(P eds 12m-18y) 03/04/2005,06/30/2004 Hepatitis B, Peds (Engerix-B/Recombivax HB) 1998,1998,1998 Influenza (IIV3) PF 10/25/2011,10/01/2002,2001 Influenza Vaccine >6 months,quad, PF 09/2023,08/30/2022,08/04/2021,09/16,08/24/2017 Influenza, Split Virus, Triv alent, Pf (Fluzone\Fluarix) 09/03/2024 MMR (MMRII) 03/21/2003,04/03/1999 Meningococcal ACWY (Menactra ) 06/10/2009 Meningococcal ACWY (Menveo ) 04/30/2014 OPV, trivalent, live 1998 Polio, Unspecified 03/21/2003 Poliovirus, inactivated (IPV) 03/21/2003, 998,1998 TDAP (Adacel,Boostrix) 02/12/2021 TDAP Vaccine (Adacel) 06/10/2009 TRIHIBIT (DTAP/HIB, <7y) 04/03/1999 Varicella (Varivax) 06/09/2008,1998 Family History * Patient is adopted Medical History Relation Comments Family History Negative Adoptive Father Cancer Mother 3rd brain tumor - now stage 4 glioblastoma Other Cancer Mother Brain Cancer Dec eased Relation Status Comments Adoptive Father Alive Brother Maternal Grandfather Alive Maternal Grandmother Alive Mother Paternal Grandfather Alive Paternal Grandmother Alive Sister Alive Social History Tobacco Use Types Packs/Day Years Used Date Smoking Tobacco: Never Smokeless Tobacco: Never Tobacco Cessation:Counseling Given: Not Answered Comments:Quit Juuling (nicotine) for 5 months now Alcohol Use Standard Drinks/Week Comments No 0 (1 standard drink = 0.6 oz pur e alcohol) very rare Social Connection and Isolation Panel [NHANES] A nswer Date Recorded Frequency of Communication with Friends and Fami ly Not on file 03/10/2025 How often do you get togethe r with friends or relatives? Three times a week 03/10/2025 Attends Quaker Services Not on file 03/10 Active Member of Clubs or Organizations Not on f ile 03/10/2025 Attends Club or Organization Meetings Not on riley e 03/10/2025 Marital Status Not on file 03/10/2025 AUDIT-C Answer Date Recorded Q1: How often [...] PHQ-2 Answer Date Recorded PHQ-2 Score 0 03/14/2025 [facility] [place] of Occupat ional Health - Occupational Stress Questionnaire Answer Date Recorded Do you feel stress - tense, restless, nervous, or anxious, or unable to sleep at night because your mind is troubled all the time - these days? Only a little 03/10/2025 Exercise Vital Sign Answer Date Recorde d On average, how many days pe r week do you engage in moderate to strenuous exercise (like a brisk walk)? 3 days 03/10/2025 On average, how many minutes do you engage in exercise at this level? 60 min 03/10/2025 Adolescent Education Answer Date Record ed Getting School Help Needed Not on file 09/03 Food Insecurity Answer Date Recorded Within the past 12 months, d id you worry that your food would run out before you got money to buy more? No 03/10/2025 Within the past 12 months, d id the food you bought just not last and you didn t have money to get more? No 03/10/2025 Housing Stability Answer Date Recorded Do you have housing? (Housin g is defined as stable permanent housing and does not include staying outside in a car, in a tent, in an abandoned building, in an overnight snf, or couch-surfing.) Yes 03/10/2025 Are you worried about losing your housing? No 03/10/2025 Financial Resource Strain Answer Date R ecorded Within the past 12 months, h ave you or your family members you live with been unable to get utilities (heat, electricity) when it was really needed? No 03/10/2025 Transportation Needs Answer Date Record ed Within the past 12 months, h as lack of transportation kept you from medical appointments, getting your medicines, non-medical meetings or appointments, work, or from getting things that you need? No 03/10/2025 Interpersonal Safety Answer Date Record ed Do you feel physically and e motionally safe where you currently live? Yes 03/14/2025 Within the past 12 months, h ave you been hit, slapped, kicked or otherwise physically hurt by someone? No 03/14/2025 Within the past 12 months, h ave you been humiliated or emotionally abused in other ways by your partner or ex-partner? No 03/14/2025 Comments No Sex and Gender Information Value Date Recorded Sex Assigned at Not on file Legal Sex Female 3:35 AM DIRECTOR OF PHYSICIAN PRACTICES Gender Identity Not on file Sexual Orientation Not on file Last Filed Vital Signs Vital Sign Reading Time Taken Comments Blood Pressure 111/66 03/14/2025 1:44 PM CDT Pulse 75 03/14/2025 1:44 PM CDT Temperature 36.7 C (98.1 F) 03/14/2025 1:44 PM CDT Respiratory Rate 12 03/14/2025 1:44 PM CDT Oxygen Saturation 100% 03/14/2025 1:44 PM CDT Inhaled Oxygen Concentration - - Weight 49.9 kg (109 lb 14.4 oz) 03/14/2025 1:44 PM CDT Height 162.6 cm (5' 4) 03/14/2025 1:44 PM CDT Body Mass Index 18.86 03/14/2025 1:44 PM CDT Plan of Treatment Health Maintenance Due Date Last Done Comments DEPRESSION ACTION PLAN 1998 COVID-19 VACCINE ( season) 2024 08/25/2021, 01/20/2021, 12/30/2020 INFLUENZA VACCINE (#1) 2025 , 08/30/2023, 08/30/2022, Additional history exists PHQ-9 09/13/2025 03/14/2025, 02/19, 01/30/2023, Additional history exists PAP 01/30/2026 01/30/2023, 02/05/2020 ANNUAL REVIEW OF HM ORDERS 03/14/202603/14, 03/14/2024, 01/30/2023, Additional history exists YEARLY PREVENTIVE VISIT 03/14/2026 03/14/20, 03/14/2024, 01/30/2023, Additional history exists ADVANCE CARE PLANNING 03/17/2030 03/17/2025, 021 DTAP/TDAP/TD VACCINE (8 - Td or Tdap) 02/12/2031 02/12/2021, 06/10/2009, 03/21/2003, Additional history exists ZOSTER VACCINE (1 of 2) 2048 HEPATITIS B VACCINE Completed 1998, 1998, 1998, Additional history exists MENINGITIS VACCINE Completed 04/30/2014, 06/10/2009 CHLAMYDIA SCREENING Discontinued 02/12/2021, 02/05/2020, 2017 HPV VACCINE Completed 02/12/2021, /07/2015, 04/30/2014, Additional history exists HEPATITIS C SCREENING Discontinued HIV SCREENING Discontinued PNEUMOCOCCAL VACCINE: PEDIATRICS (0 to 5 YEARS) AND AT-RISK PATIENTS (6 to 49 YEARS) Aged Out No longer eligible based on patient's age to complete this topic Procedures Procedure Name Priority Date/Time Associated Diagnosis Comments VITAMIN D DEFICIENCY SCREENING Routine 03/14/2025 2:14 PM CDT Encounter for vitamin deficiency screening BASIC METABOLIC PANEL Routine 03/14/2025 2:14 PM CDT Screening for metabolic disorder CBC WITH PLATELETS Routine 03/14/2025 2: 14 PM CDT Screening for deficiency anemia GYNECOLOGIC CYTOLOGY Routine 01/30/2023 5:28 PM CDT Cervical cancer screening CHLAMYDIA TRACHOMATIS PCR Routine 02/12/2021 7:45 AM CDT Screening for STDs (sexually transmitted diseases) from Last 3 Months or Most Recently Relevant to Health Maintenance Results * (ABNORMAL) Vitamin D Deficiency (03/14/2025 2:14 PM CDT) Pathologist [facility] Vitamin D, Total (25-Hydroxy) 15(L) 20 - 50 ng/mL 03/15/2025 10:21 AM CDT [facility] Comment:mild to moderate def iciency Blood BLOOD SPECIMEN / Unknown Venipuncture / Unknown 03/14/2025 2:14 PM CDT 03/14/2025 2:14 PM CDT Narrative [facility] - 03/15/2025 10:21 AM CDT Season, race, dietary intake, and treatment affect the concentration of 18-tyokgwa-Tabdjyc D. Values may decrease during winter months and increase during summer months. Vitamin D determination is routinely performed by an immunoassay specific for 25 hydroxyvitamin D3. If an individual is on vitamin D2(ergocalciferol) supplementation, please specify 25 OH vitamin D2 and D3 level determination by LCMSMS test VITD23. us Isha Cox MD LAB - BLOOD ORDERABLES Final Res ult [facility] [address] [facility], [address] [place] [address] * Basic metabolic panel (Ca, Cl, CO2, Creat, Gluc, K, Na, BUN) (03/14/2025 2:14 PM CDT) Pathologist [facility] Sodium 137 135 - 145 mmol/L 03/15/2025 10:21 AM CDT [facility] Potassium 3.6 3.4 - 5.3 mmol/L 03/15/2025 10:21 AM CDT [facility] Chloride 105 98 - 107 mmol/L 03/15/2025 10:21 AM CDT [facility] Carbon Dioxide (CO2) 23 22 - 29 mmol/L 03/15/2025 10:21 AM CDT [facility] Anion Gap 9 7 - 15 mmol/L 03/15/2025 10:21 AM CDT [facility] Urea Nitrogen 15.8 6.0 - 20.0 mg/dL 03/15/2025 10:21 AM CDT [facility] Creatinine 0.67 0.51 - 0.95 mg/dL 03/15/2025 10:21 AM CDT [facility] GFR Estimate >90 >60 mL/min/1.7 3m2 03/15/2025 10:21 AM CDT [facility] Comment:eGFR calculated 2020 CKD-EPI equation. Calcium 9.6 8.8 - 10.4 mg/dL 03/15/2025 10:21 AM CDT [facility] Glucose 89 70 - 99 mg/dL 03/15/2025 10:21 AM CDT [facility] Blood BLOOD SPECIMEN / Unknown Venipuncture / Unknown 03/14/2025 2:14 PM CDT 03/14/2025 2:14 PM CDT us Isha Cox MD LAB - BLOOD ORDERABLES Final Res ult [facility] [address] [facility], [address] [place] [address], [facility] * CBC with platelets (03/14/2025 2:14 PM CDT) WBC Count 9.0 4.0 - 11.0 10e3/uL 03/14/2025 2:16 PM CDT [facility] RBC Count 4.40 3.80 - 5.20 10e6/uL 03/14/2025 2:16 PM CDT [facility] Hemoglobin 13.0 11.7 - 15.7 g/dL 03/14/2025 2:16 PM CDT [facility] Hematocrit 39.4 35.0 - 47.0 % 03/14/2025 2:16 PM CDT [facility] MCV 90 78 - 100 fL 03/14/2025 2:16 PM CDT [facility] MCH 29.5 26.5 - 33.0 pg 03/14/2025 2:16 PM CDT [facility] MCHC 33.0 31.5 - 36.5 g/dL 03/14/2025 2:16 PM CDT [facility] RDW 12.4 10.0 - 15.0 % 03/14/2025 2:16 PM CDT [facility] Platelet Count 294 150 - 450 10e3/uL 03/14/2025 2:16 PM CDT [facility] Blood BLOOD SPECIMEN / Unknown Venipuncture / Unknown 03/14/2025 2:14 PM CDT 03/14/2025 2:14 PM CDT us Isha Cox MD LAB - BLOOD ORDERABLES Final Res ult [facility] [place] [facility] [address] [facility] Lab (no room number, 1st floor of clinic) [place] [address], [facility] * Pap Screen reflex to HPV if ASCUS - recommend age 25 - 29 (01/30/2023 5:28 PM CDT) Interpretation Negative for Intraepithelial Lesion or Malignancy (NILM) 02/02/2023 12:40 PM CDT [facility] at 1240 CDT Comment Papanicolaou Test Limitations: Cervical cytology is a screening test with limited sensitivity, and regular screening is critical for cancer prevention. Pap tests are primarily effective for the diagnosis/prevent ion of squamous cell carcinoma, not adenocarcinoma or other cancers. 02/02/2023 12:40 PM CDT [facility] Specimen Adequacy Satisfactory for evaluation, endocervical/haji sformation zone component present 02/02/2023 12:40 PM CDT [facility] Clinical Information none 02/02/2023 12:40 PM CDT [facility] LMP/Menopause Date 01/09/2023 02/02/2023 12:40 PM CDT [facility] Reflex Testing Yes if ASCUS 02/03/20 12:40 PM CDT [facility] Previous Abnormal? No 02/02/2023 12:40 PM CDT [facility] Performing Labs The technical component of this testing was completed at [facility] 02/02/2023 12:40 PM CDT [facility] Brushing CERVIX UTERI STRUCTURE / Unknown Non-blood Collection / Unknown 01/30/2023 5:28 PM CDT 01/30/2023 5:43 PM CDT Isha Cox MD LAB - BEMARYELLEN Final Result [facility] Special[facility] Lab [address] [facility], [address] [id number], [facility] [phone] * CHLAMYDIA TRACHOMATIS PCR (02/12/2021 7:45 AM CDT) Specimen Description Urine 02/12/2021 7:53 AM CDT [facility] Chlamydia Trachomatis PCR Negative NEG^Negat dandy 02/13/2021 1:05 PM CDT [facility] Comment: Negative for C. trachomatis rRNA by community relations officer mediated amplification. A negative result by community relations officer mediated amplification does not preclude the presence of C. trachomatis infection because results are dependent on proper and adequate collection, absence of inhibitors, and sufficient rRNA to be detected. Urine specimen (specimen) 02/12/2021 7:45 AM CDT 02/12/2021 7:50 AM CDT us Jessica Ferrara MD LAB - MICRO GENERAL ORD ERABLES Final Result [facility] [address] [place] [address], [address] [address] from Last 3 Months or Most Recently Relevant to Health Maintenance Insurance [facility] CORE [facility] CORE Advance Directives For more information, please contact: [phone] * Full Code (Latest Code Status on File) Date Activated Date Inactivated Comments 07/13/2020 1:46 PM 07/14/2020 1:03 AM All basic an d advanced life-sustaining interventions are performed as appropriate Question Answer Comments Code status determined by: Discussion with patie nt/ legal decision maker Care Teams Bacteriology Teacher Relationship Specialty [place] [address] [place] [address] PCP - General Family Medicine 08/27/21 Luci Sanches, [facility] [address] [place] [address] LUCY SULLIVAN [address] Fluxer Fluxer - Clinical 09/15/20 Chaparro Vargas MD [address] [place] [address] Gastroenterology 03/22/21 [place] [address] [place] [address] Assigned PCP 09/05/21 Shahnaz Barber Personal Advocate & Liaison (PAL) Family Medicine 01/30/23
--- OUTSIDE RECORDS SUMMARY | 2025-05-25 06:22 | XMS_ITS | Encounter Summary ---
Author Organization [facility] Address [address] [place] [address] Care Team Providers Care Xerox Machine Operator Name Role Phone TaylorleonidasramyLuciSW Unavailable [phone] Chaparro Vargas MD Unavailable Isha Cox MD Primary Care Provider [phone] Isha Cox MD Unavailable Shahnaz Barber Unavailable Unavailable Encounter Details Date Type Department Care Team (Late st Contact Info) Description 03/21/2025 [facility] [place] [address] [address] Leann Page RN Social History Tobacco Use Types Packs/Day [...] relatives? Three times a week 03/10/2025 Attends [employer] Services Not on file 03/10 Active Member [...] Answer Date Recorded PHQ-2 Score 0 03/14/2025 [facility] of Occupat ional Health - Occupational [...] Answer Date Recorded Do you have housing? 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 & CO FOUNDER Gender Identity Not on file Sexual Orientation Not on file documented as of this encounter Plan of Treatment Not on file documented as of this encounter Visit Diagnoses Not on filedocumented in this encounter Additional Health Concerns Assessment Noted Time PHQ-9 Depression Total Score: 1 03/14/20 25 1:40 PM CDT documented as of this encounter Care Teams Xerox Machine Operator Relationship Specialty [place] [address] [place] [address] PCP - General Family Medicine 08/27/21 Luci Sanches, [facility] [address] [place] [address] [place] [address] Gericare Aide Gericare Aide - Clinical 09/15/20 Chaparro Vargas MD [address] [place] [address] Gastroenterology 03/22/21 [place] [address] [place] [address] Assigned PCP 09/05/21 Shahnaz Barber Personal Advocate & Liaison (PAL) Family Medicine 01/30/23 documented as of this encounter
--- OUTSIDE RECORDS SUMMARY | 2025-05-25 06:22 | XMS_ITS | Encounter Summary ---
Author Organization [facility] Address [address] [place] [address] Care Team Providers Care Beater Boss Name Role Phone Livier, Jessica Laurent CN Unavailable [phone] Luci Sanches [facility] Unavailable [phone] Joana Roland RN Unavailable Unavailable Jessica Ferrara MD Primary Care Provider Jessica Ferrara MD Unavailable [phone] Chaparro Vargas MD Unavailable Chaparro Vargas MD Unavailable Alissa Payan [facility] Primary Care Provid er Unavailable Isha Cox MD Primary Care Provider [phone] Robbie Shrestha Unavailable Unavailable Isha Cox MD Unavailable Genaro Jimenez Unavailable Unavailable Shahnaz Barber Unavailable Unavailable Encounter Details Date Type Department Care Team (Late st Contact Info) Description 02/12/2021 [facility] [place] [facility] [address] [address] [place] [address] Luci Sanches, [place] [id number] [facility] [address] [facility] [place] [address] Social History Tobacco Use Types Packs/Day Years [...] Answer Date Recorded PHQ-2 Score 0 [facility] Questionnaire Answer [...] on file Legal Sex Female 3:35 AM DECKHAND FISHING VESSEL Gender Identity Not on file Sexual Orientation [...] Total Score: 2 01/19/20 21 1:07 PM DECKHAND FISHING VESSEL documented as of this encounter Care Teams Beater Boss Relationship Specialty Start Date End Date Jessica Ferrara MD PCP - General Internal Medicine 02/12/21 08/16/21 Alissa Payan, [facility] [address] [place] [address] PCP - General Balance Bridge Assembler - Clinical 08/17/21 08/26/21 [place] [address] [place] [address] PCP - General Family Medicine 08/27/21 Jessica Maier CNM [address] [address] Assigned OBGYN Provider 09/11/20 01/15/22 Luci Sanches, [facility] [address] [place] [address] [address] [place] [address] Balance Bridge Assembler Balance Bridge Assembler - Clinical 09/15/20 Joana Roland, RN Other (see comments) Primary Care - CC 12/31/20 04/29/21 Jessica Ferrara MD [facility] [address] [place] [address] Assigned PCP 01/21/21 09/04/21 Chaparro Vargas MD [address] [place] [address] Gastroenterology 03/22/21 Chaparro Vargas MD [address] [place] [address] Assigned Gastroenterology Provider 05/16/21 11/11/22 Robbie Shrestha Personal Advocate & Liaison (PAL) 08/27/21 02/06/22 [place] [address] [place] [address] Assigned PCP 09/05/21 Genaro Jimenez Personal Advocate & Liaison (PAL) 02/07/22 01/29/23 Shahnaz Barber Personal Advocate & Liaison (PAL) Family Medicine 01/30/23 documented as of this encounter
--- OUTSIDE RECORDS SUMMARY | 2025-05-25 06:22 | XMS_ITS | Encounter Summary ---
Author Organization [place] Address [address] [place] [address] Care Team Providers Care Acquisitions Analyst Name Role Phone Jessica Maier SETH Unavailable No Ref-Primary, Physician Primary Care Provider Luci Sanches [facility] Unavailable Joana Roland RN Unavailable Unavailable Jessica Ferrara MD Primary Care Provider Jessica Ferrara MD Unavailable Chaparro Vargas MD Unavailable Chaparro Vargas MD Unavailable Alissa Payan [facility] Primary Care Provid er Unavailable Isha Cox MD Primary Care Provider [phone] Robbie Shrestha Unavailable Unavailable Isha Cox MD Unavailable Genaro Jimenez Unavailable Unavailable Shahnaz Barber Unavailable Unavailable Encounter Details Date Type Department Care Team (Late st Contact Info) Description 01/15/2021 MyC Medical Advice [facility] [address] [place] [address] [address] [place] [address] Luci Sanches, SECURITY TEAM LEAD [address] [facility] [address] [facility] [place] [id number] Social History Tobacco Use Types Packs/Day Years [...] and Family Not on file 07/23/2020 Attends [employer] Not on file 07/23 Active Member [...] Answer Date Recorded PHQ-2 Score 1 12/14/2020 [facility] Occupat ional Health - Occupational Stress Questionnaire [...] on file Legal Sex Female 3:35 AM PENSION ADVISER Gender Identity Not on file Sexual Orientation Not on file documented as of this encounter Plan of Treatment Not on file documented as of this encounter Visit Diagnoses Not on filedocumented in this encounter Additional Health Concerns Assessment Noted Time PHQ-9 Depression Total Score: 2 12/14/19 12:10 PM PENSION ADVISER documented as of this encounter Care Teams Acquisitions Analyst Relationship Specialty Start Date End Date No Ref-Primary, Physician PCP - General 11/16/20 02/11/21 Jessica Ferrara MD PCP - General Internal Medicine 02/12/21 08/16/21 Alissa Payan, [facility] [address] [place] [address] PCP - General Fire Protection Specialist - Clinical 08/17/21 08/26/21 [place] [address] [place] [address] PCP - General Family Medicine 08/27/21 Jessica Maier CNM [address] [address] Assigned OBGYN Provider 09/11/20 01/15/22 Luci Sanches, [facility] [address] [facility] [address] [place] [address] Fire Protection Specialist Fire Protection Specialist - Clinical 09/15/20 Joana Roland, RN Other (see comments) Primary Care - CC 12/31/20 04/29/21 Jessica Ferrara MD [facility] [address] [place] [address] Assigned PCP 01/21/21 09/04/21 Chaparro Vargas MD [address] [place] [address] Gastroenterology 03/22/21 Chaparro Vargas MD [address] [place] [address] Assigned Gastroenterology Provider 05/16/21 11/11/22 Robbie Shrestha Personal Advocate & Liaison (PAL) 08/27/21 02/06/22 [place] [address] [place] [address] Assigned PCP 09/05/21 Genaro Jimenez Personal Advocate & Liaison (PAL) 02/07/22 01/29/23 Shahnaz Barber Personal Advocate & Liaison (PAL) Family Medicine 01/30/23 documented as of this encounter
[2025-05-25 06:31] VITALS: BP 142/94; PULSE 80; RESP 16; TEMP 36.7; O2SAT 97; BMI 18.0
--- NOTE | 2025-05-25 06:52 | ED.GENADULT ---
HPI - General Adult General Chief complaint: Nausea/Vomiting Stated complaint: dehydration Time Seen by Provider: 05/25/25 06:34 Source: patient and family Mode of arrival: ambulatory Limitations: no limitations History of Present Illness HPI narrative: 25-year-old female presents to the emergency department for evaluation of nausea and vomiting. Reports heavy social alcohol drinking on Monday which is a day and half prior to arrival. Started having nausea and vomiting 24 hours ago and has not been able to hold down any fluids since. She took a Zofran right away when the vomiting started at 5:00 a.m. 24 hours ago and then tried repeating the dose at 11:00 a.m. with no improvement in symptoms, is out of the medication and has not had any for the past 18 hours. Has had this reaction unfortunately from drinking alcohol before, denies a history of alcoholism or problems with alcohol. It sounds as though she just got carried away with the holiday. She denies any abdominal or back pain. No history of pancreatitis. No history of abdominal surgeries besides an appendectomy several years ago which she reports was uncomplicated. Denies chance of , last menstrual period was last week. Does not take any prescription medications. She has done her best to try to manage at home but is requesting IV fluids. Triage notes reviewed. Is noted to be orthostatic by pulse in triage. She reports benign past medical history, no major long-term health problems. No chronic prescription medications or allergies. Nonsmoker. ROS is notable for the GI symptoms only. No sick contacts, no pertinent travel. Otherwise negative times 12 systems. Related Data Home Medications ?Medication ?Instructions ?Recorded ?Confirmed cetirizine 10 mg tablet (24Hour 10 mg PO DAILY PRN 05/25/25 05/25/25 Allergy) Allergies Allergy/AdvReac Type Severity Reaction Status Date / Time No Known Drug Allergies Allergy Verified 07/23/24 13:00 [facility] Surgical History Hx of appendectomy ?Z90.49 - Acquired absence of other specified parts of digestive tract (ICD-10) Social History Smoking Status: Never smoker Do you use any of these nicotine containing products: None How often do you have a drink containing alcohol: monthly or less How often do you have six or more drinks on one occasion: Never AUDIT-C Alcohol total score: 1 Non-prescribed substance use: denies use service: No Exam Const: Vital Signs, click to edit/add: Vital Signs - 24 hr 05/25/25 06:31 05/25/25 07:58 Temperature 98.1 F Pulse Rate [Left P ulse Oximeter] 80 54 L Respiratory Rate 16 16 Blood Pressure [Ri ght Upper Arm] 142/94 H 117/79 Pulse Oximetry 97 95 Oxygen Delivery Me thod Room Air Room Air Documenting provider has reviewed patient's vital signs: yes Common normals: no apparent distress and alert General appearance: cooperative and well kempt HENMT: Common normals: normocephalic and moist oral mucous membranes Head and scalp: normocephalic Mouth: oral and palatal mucosa normal Eye: Common normals: conjunctivae normal General eye: normal appearance of both eyes Conjunctiva: conjunctiva(e) normal Neck & C-Spine: General: normal visual inspection Resp: Common normals: normal respiratory effort, no use of accessory muscles and clear to auscultation bilaterally Effort & inspection: able to speak in complete sentences Auscultation: clear to auscultation bilaterally Cardio: Common normals: regular rate, regular rhythm, S1 normal heart sound, S2 normal heart sound and no murmurs Rate: regular rate Rhythm: regular rhythm Heart sounds: S1 normal and S2 normal GI: Common normals: Normal to inspection, nondistended, normoactive bowel sounds present, soft to palpation, non-tender, no hepatosplenomegaly and no masses Palpation: soft and no hepatosplenomegaly Extremity: General: normal exam except as noted Neuro: Sensorium/orientation: alert Speech: speech normal Motor exam: strength 5/5 throughout Psych: Appearance: well kempt Attitude: engaged Insight: insight good Judgement: judgment good Skin: Common normals: no rashes or lesions noted General skin exam: no rashes or lesions noted Course Course ED Course: 25-year-old female with persistent nausea and vomiting after an episode of heavy social drinking. Patient remorseful for being in the ED citing that she does not want to ?tie up resource is a necessarily?. This is admirable. IV will be placed, bolus of normal saline and 4 mg of Zofran will be given. I offered labs to look for pancreatitis, electrolyte abnormalities and other causes, patient does not think this is necessary and I am inclined to agree. Will see how she response to these interventions and will also give 20 mg of oral famotidine after 15 minutes of the IV Zofran to see if she tolerates this then will begin an oral fluid challenge. Consider additional workup of this is unsuccessful. Reevaluation(s) Time of Reevaluation #1: 08:05 Reevaluation #1: Fluids are nearly complete. Patient has had no vomiting or even retching here in the ED. She tolerated the oral famotidine. Has been very hesitant to drink IV fluids even with our insistence, but she has not had any shelley vomiting. She requested additional anti nausea medicine after the Zofran was given and she was given Compazine which has made her quite sleepy, as expected. Patient is counseled to continue to push fluids today, rest. If symptoms have not improved in 48 hours, I would recommend re-evaluation. Alarm symptoms reviewed that would warrant ED presentation. Vital Signs Vital signs: Initial Vital Signs Temperature 98.1 F 05/25/25 06:31 Temperature Source Temporal Artery Scan 05/25/25 06:31 Pulse Rate 80 05/25/25 06:31 Respiratory Rate 16 05/25/25 06:31 Blood Pressure 142/94 H 05/25/25 06:31 Blood Pressure Mean 110 H 05/25/25 06:31 Blood Pressure Position Sitting 05/25/25 06:31 Pulse Oximetry 97 05/25/25 06:31 Oxygen Delivery Method Room Air 05/25/25 06:31 Vital Signs Temperature 98.1 F 05/25/25 06:31 Pulse Rate 80 05/25/25 06:31 Respiratory Rate 16 05/25/25 06:31 Blood Pressure 142/94 H 05/25/25 06:31 Pulse Oximetry 97 05/25/25 06:31 Oxygen Delivery Method Room Air 05/25/25 06:31 Temperature 98.1 F 05/25/25 06:31 Pulse Rate 54 L 05/25/25 07:58 Respiratory Rate 16 05/25/25 07:58 Blood Pressure 117/79 05/25/25 07:58 Pulse Oximetry 95 05/25/25 07:58 Oxygen Delivery Method Room Air 05/25/25 07:58 Medications Administered Medications: Discontinued Medications Generic Name Dose Route Start Last Admin Trade Name Harriet PRN Reason Stop Dose Admin Famotidine 20 mg 05/25/25 06:48 05/25/25 06:59 Famotidine 20 Mg Tablet PO 05/25/25 06:49 20 mg ONCE ONE Administration Sodium Chloride 1,000 mls @ 1,000 mls/hr 05/25/25 06:48 05/25/25 06:56 0.9 % Sodium Chloride 1000 Ml IV 05/25/25 07:47 1,000 mls/hr .Q1H DC Administration Ondansetron HCl 4 mg 05/25/25 06:48 05/25/25 06:57 Ondansetron 2 Mg/Ml Inj IVP 05/25/25 06:49 4 mg ONCE ONE Administration Prochlorperazine 10 mg 05/25/25 07:31 05/25/25 07:44 Prochlorperazine 5 Mg/Ml Vial IV 05/25/25 07:32 10 mg ONCE ONE Administration Discharge Plan Discharge Clinical Impression: Nausea Patient Disposition: Home w/ Parent or Adult Condition: Improved Instructions: Acute Nausea and Vomiting (DC) Additional Instructions: I do agree that your nausea vomiting was most likely caused by alcohol. Unfortunately, some people systems are very sensitive to this and symptoms tend to last up to about 48 hours from the time the alcohol actually clears from your system. You can expect about another 24 hours of intermittent symptoms. Hopefully the IV fluids and anti nausea medicines do help kick start things in the proper direction. Continue to sip on clear fluids, advancing your diet as tolerated. You will likely continue to be very sleepy for the next 6 hours due to the Compazine. I have given you a prescription for some more Zofran. I recommend you take another dose at about 1:00 p.m. and then after that see how things go. Try to push salty foods as these will help regulate fluid better. If your symptoms last for more than 36 more hours, I would recommend re-evaluation and additional workup to look for gallstones, pancreatitis or other abnormality. You should return to the emergency department if you have persistent throwing up of blood. Consider taking an antacid like famotidine or omeprazole once daily for the next couple of days to help things heal more quickly. You are cleared to return to work in 12 hours. Activity Level: No Restrictions Discharge Diet: Regular Prescriptions: No Action cetirizine [24Hour Allergy] 10 mg tablet 10 mg PO DAILY PRN Follow Up/Referrals: Gunner Cox [facility] [Primary Care Provider, Internal Medicine] Stand Alone Forms: [employer] Info Instructions
[2025-05-25] MEDS: ONDANSETRON 2 MG/ML inj 4 MG IVP (06:57)
[2025-05-25] MEDS: FAMOTIDINE 20 MG TABLET PO (06:59)
[2025-05-25] MEDS: PROCHLORPERAZINE 5 MG/ML VIAL 10 MG IV (07:44)
[2025-05-25 07:58] VITALS: BP 117/79; PULSE 54; RESP 16; O2SAT 95
== END 2025-05-25 08:24 | disposition home or self-care (01) ==
PROVIDERS: Emergency Provider Family Medicine; PCP Internal Medicine
DX: R11.2 Nausea with vomiting, unspecified (principal); F10.90 Alcohol use, unspecified, uncomplicated
CPT/HCPCS: 96374; 96375; 99283; 99284; A9270; J0780; J2405; J7030